=== PATIENT | female | born 2000 | race Two or more races ===

== ENCOUNTER 2018-03-08 19:19 | Emergency (ER) | payer OTHER ==
[2018-03-08] MEDS ORDERED: Cephalexin CAP* 500 MG PO ONE (20:01)
[2018-03-08] MEDS ORDERED: oxyCODONE/Acetamin 5/325 MG* TAB PO ONE (20:01)
--- NOTE | 2018-03-08 20:08 | ED ---
Skin Complaint - HPI Summary HPI Summary: This patient is a 17 year old female presenting to [facility] accompanied by mother with a chief complaint of right axillary pain since 1 week ago. Patient states that she has little lumps under her skin that make it difficult to move her arm. She states that she usually sees a customer care team coach for these issues and went to see one yesterday, where she received cortisone shots. The shots eased the pain, but patient states that she feels as if the issue is spreading and presents to the ED. The pain is described as a numbness that zaman. The pain is rated 8/10 in severity. Symptoms aggravated by nothing. Patient additionally reports fever, chills. - History of Current Complaint Chief Complaint: EDGeneral Time Seen by Provider: 03/08/18 19:54 Stated Complaint: GENERAL PAIN Hx Obtained From: Patient Onset/Duration: Started Weeks Ago, Still Present Timing: Constant Current Severity: Moderate Pain Intensity: 7 Pain Scale Used: 0-10 Numeric Skin Location: Other: - right axillary Character: Swelling, Redness Aggravating Symptom(s): Nothing Alleviating Symptom(s): Other: - Cortisone shot Associated Signs & Symptoms: Fever, Chills - Allergy/Home Medications Allergies/Adverse Reactions: Allergies Allergy/AdvReac Type Severity Reaction Status Date / Time No Known Allergies Allergy Verified 03/10/18 07:57 Home Medications: Home Medications DOXYcycline CAP(*) [DOXYcycline 100MG CAP(*)] 100 mg PO BID 03/08/18 [History Confirmed 03/08/18] PMH/Surg Hx/FS Hx/Imm Hx Previously Healthy: Yes Opthamlomology History: Denies: Hx Legally Blind EENT History: Denies: Hx Deafness Infectious Disease History: No Infectious Disease History: Denies: Traveled Outside the [place] in Last 30 Days - Family History Known Family History: Negative: Hypertension - Social History Occupation: Student Alcohol Use: None Hx Substance Use: No Substance Use Type: Reports: None Hx Tobacco Use: No Smoking Status (MU): Never Smoked Tobacco Review of Systems Positive: Fever, Chills Positive: Other - subcutaneous bumps and swelling All Other Systems Reviewed And Are Negative: Yes Physical Exam - Summary Physical Exam Summary: Appearance: Well-appearing, Well-nourished, lying in bed comfortable Skin: Warm, dry, Tenderness and swelling in right axillary without induration or visible cellulitis Eyes: sclera anicteric, no conjunctival pallor ENT: mucous membranes moist Neck: deferred Respiratory: No signs of respiratory distress Cardiovascular: Appears well perfused, pulses are nml Abdomen: deferred Musculoskeletal: Moving all 4 extremities without obvious discomfort Neurological: Awake and alert, mentation is normal, speech is fluent and appropriate Psychiatric: affect is normal, does not appear anxious or depressed Triage Information Reviewed: Yes Vital Signs On Initial Exam: Initial Vitals Temp Pulse Resp BP Pulse Ox 100.3 F 116 16 125/89 97 03/08/18 19:20 03/08/18 19:20 03/08/18 19:20 03/08/18 19:20 03/08/18 19:20 Vital Signs Reviewed: Yes Procedures - Incision and Drainage Right Axilla Site: Incision and Drainage in Right axilla Anesthesia: Local, Lidocaine Instrument(s): Scalpel Packing: Other - No packing Diagnostics - Vital Signs Vital Signs Temp Pulse Resp BP Pulse Ox 03/08/18 19:20 100.3 F 116 16 125/89 97 - Laboratory Lab Statement: Any lab studies that have been ordered have been reviewed, and results considered in the medical decision making process. - Additional Comments Diagnostic Additional Comments: Soft Tissue US reveals, per radiologist, IMPRESSION: Small fluid collection in the right axilla. ED physician has reviewed this radiology report. Course/Dx - Course Assessment/Plan: This patient is a 17 year old female presenting to [facility] accompanied by mother with a chief complaint of right axillary pain since 1 week ago. Patient states that she has little lumps under her skin that make it difficult to move her arm. Soft Tissue US reveals, per radiologist, IMPRESSION: Small fluid collection in the right axilla. ED physician has reviewed this radiology report. In the ED course the patient was given Bupivacaine, Keflex, Oxycodone. Patient will be discharged with a dx of abscess and a prescription for Bactrim, Duricel, Oxycodone. Patient is advised to follow up with PCP in 3 days. The patient is agreeable with this plan. - Diagnoses Provider Diagnoses: Abscess Discharge - Sign-Out/Discharge Documenting (check all that apply): Patient Departure Patient Received Moderate/Deep Sedation with Procedure: No - Discharge Plan Condition: Critical Disposition: HOME Prescriptions: Cefadroxil CAP* [Duricef CAP*] 500 mg PO BID #14 cap oxyCODONE/Acetamin 5/325 MG* [Percocet 5/325 TAB*] 1 tab PO Q4H PRN #10 tab MDD 4 tabs PRN Reason: Pain Sulfamethox/Trimethoprim DS* [Bactrim DS 800/160 TAB*] 1 tab PO BID #14 tab Patient Education Materials: Abscess (ED) Referrals: Juaquin Dean MD [Medical Doctor] - Additional Instructions: I am starting you on 2 antibiotics for over the weekend. On Sunday, contact your customer care team coach. You can tell them we did an US and found a small fluid collection. I attempted to incise and drain this but did not get any pus back and I am reluctant to do a deeper or larger procedure at this time. Your customer care team coach may want to repeat the US and perhaps do an incision and drainage themself. Alternatively our local general surgeons can help you if you are unable to connect to the customer care team coach. - Billing Disposition and Condition Condition: CRITICAL Disposition: Home - Attestation Statements Document Initiated by Anne: Yes Documenting Scribe: Kenyatta Hanna Provider For Whom Anne is Documenting (Include Credential): Cory Young MD Scribe Attestation: I, Kenyatta Hanna, scribed for Cory Young MD on 03/11/18 at 1325. Scribe Documentation Reviewed: Yes Provider Attestation: The documentation as recorded by the Kenyatta cortez accurately reflects the service I personally performed and the decisions made by me, Cory Young MD Status of Scribe Document: Viewed
[2018-03-08] MEDS ORDERED: Bupivacaine 0.5% W/EPI SDV* 30 ML VIAL INJ ONE (21:18)
[2018-03-08] MEDS ORDERED: Lidocaine 2% EPI 1:200000 MPF*10-20 ML VIAL ONE (21:23)
[2018-03-08] MEDS ORDERED: Sulfamethox/Trimethoprim DS 800/160* TAB PO ONE (21:37)
[2018-03-08 21:40] VITALS: BP 126/72
[2018-03-08] MEDS ORDERED: Lidocaine 2% EPI 1:200000 MPF*10-20 ML VIAL INJ ONE (21:41)
== END 2018-03-08 21:58 | disposition home or self-care (01) ==
LOC: ED 19:19
DX: L02.411 Cutaneous abscess of right axilla (principal)
CPT/HCPCS: 10060; 99282; A9270-GY

== ENCOUNTER 2018-03-17 10:43 | Inpatient (IN) | payer OTHER ==
--- NOTE | 2018-03-17 11:02 | ED ---
HPI Febrile Illness - HPI Summary HPI Summary: This patient is a 17 year old F presenting to [facility] accompanied by family with a chief complaint of fever that began yesterday night. The patient rates the pain 3/10 in severity. Symptoms aggravated by nothing. Symptoms alleviated by nothing. Patient reports R armpit pain and headache. Patient states she was seen by Dr. Nguyen in [place] on 03/14/17 and had an abscess drained from right axilla. - History of Current Complaint Chief Complaint: EDFever Time Seen by Provider: 03/17/18 10:52 Hx Obtained From: Patient Onset/Duration: Started Hours Ago, Atraumatic, Still Present Timing: Constant Initial Severity: Moderate Current Severity: Moderate Pain Intensity: 3 Pain Scale Used: 0-10 Numeric Aggravating Factors: Nothing Alleviating Factors: Nothing Associated Signs and Symptoms: Headache, Other: - Positive R armpit pain - Allergy/Home Medications Allergies/Adverse Reactions: Allergies Allergy/AdvReac Type Severity Reaction Status Date / Time No Known Allergies Allergy Verified 03/10/18 07:57 PMH/Surg Hx/FS Hx/Imm Hx Previously Healthy: Yes Sensory History: Denies: Hx Legally Blind Opthamlomology History: Denies: Hx Legally Blind EENT History: Denies: Hx Deafness - Surgical History Surgery Procedure, Year, and Place: Drain placement in right armpit 2019. [place] teeth removal Hx Anesthesia Reactions: No Infectious Disease History: No Infectious Disease History: Denies: Traveled Outside the [place] in Last 30 Days - Family History Known Family History: Positive: Cardiac Disease, Diabetes Negative: Hypertension - Social History Occupation: Student Lives: Dormitory/Roommates Alcohol Use: None Hx Substance Use: No Substance Use Type: Reports: None Hx Tobacco Use: No Smoking Status (MU): Never Smoked Tobacco Review of Systems Positive: Fever Positive: Other - Positive R armpit pain Positive: Headache All Other Systems Reviewed And Are Negative: Yes Physical Exam - Summary Physical Exam Summary: VITAL SIGNS: Reviewed. GENERAL: Patient is a well-developed and nourished female who is lying comfortable in the stretcher. Patient is not in any acute respiratory distress. Patient is flush. Patient is febrile. Patient is ill-appearing. HEAD AND FACE: No signs of trauma. No ecchymosis, hematomas or skull depressions. No sinus tenderness. EYES: PERRLA, EOMI x 2, No injected conjunctiva, no nystagmus. EARS: Hearing grossly intact. Ear canals and tympanic membranes are within normal limits. MOUTH: Oropharynx within normal limits. NECK: Supple, trachea is midline, no adenopathy, no JVD, no carotid bruit, no c- spine tenderness, neck with full ROM. CHEST: Symmetric, no tenderness at palpation LUNGS: Clear to auscultation bilaterally. No wheezing or crackles. CVS: Regular rate and rhythm, S1 and S2 present, no murmurs or gallops appreciated. ABDOMEN: Soft, non-tender. No signs of distention. No rebound no guarding, and no masses palpated. Bowel sounds are normal. EXTREMITIES: FROM in all major joints, no edema, no cyanosis or clubbing. NEURO: Alert and oriented x 3. No acute neurological deficits. Speech is normal and follows commands. SKIN: Dry and warm. Drain in place in the right axilla. Surrounding erythema around the incision area. Triage Information Reviewed: Yes Vital Signs On Initial Exam: Initial Vitals Temp Pulse Resp BP Pulse Ox 102.0 F 123 18 115/71 97 03/17/18 10:46 03/17/18 10:46 03/17/18 10:46 03/17/18 10:46 03/17/18 10:46 Vital Signs Reviewed: Yes Diagnostics - Vital Signs Vital Signs Temp Pulse Resp BP Pulse Ox 03/17/18 10:46 102.0 F 123 18 115/71 97 - Laboratory Result Diagrams: 03/17/18 11:10 03/17/18 11:10 Lab Statement: Any lab studies that have been ordered have been reviewed, and results considered in the medical decision making process. - Radiology Chest XR Radiology Interpretation Completed By: Radiologist Summary of Radiographic Findings: CXR reveals, per radiologist, no evidence for acute disease. ED physician has reviewed this radiology report. - CT Chest CT CT Interpretation Completed By: Radiologist Summary of CT Findings: Chest CT reveals, per radiologist, there is a relatively large bilobed air-fluid collection present in the right axilla with a drain in the inferior portion of the collection consistent with an abscess. The abscess appears significantly larger than on the prior ultrasound study. ED physician has reviewed this radiology report. Course/Dx - Course Assessment/Plan: Patient is a 17-year-old female with Hx of hidradenitis suppurativa who presents to the emergency department with a chief complaint of having fevers, chills, rigors an increase in pain on the right axilla where she had an abscess and drainage. I was placed at [facility] and to 03/14/18. Patient has been taking Bactrim however the symptoms worsen. Therefore the patient is failing to by mouth antibiotics. Today the patient is tachycardic, febrile, slightly hypotension and sepsis criteria was followed. Initially she was given IV fluids 30 cc per KG, she was started with vancomycin and cefepime after blood culture was sent. She was given Tylenol for the fever. Blood work without any significant abnormality except for thrombocytopenia, sodium of 133 and CRP of 53.9. At this point the patient is feeling better. At this time I discussed my physical exam and findings with Dr. Benitez from the hospitalist services for admission however she requests and chest CT with IV contrast and a surgical consult before she admits the patient to his services. Chest CT IMPRESSION: THERE IS A RELATIVELY LARGE BILOBED AIR-FLUID COLLECTION PRESENT IN THE RIGHT AXILLA WITH A DRAIN IN THE INFERIOR PORTION OF THE COLLECTION CONSISTENT WITH AN ABSCESS. THE ABSCESS APPEARS SIGNIFICANTLY LARGER THAN ON THE PRIOR ULTRASOUND STUDY. This point I discussed my physical exam and findings with and Dr. Reynoso and he will be consulting for the patient in the ED. After his assessment he recommends to add Flagyl and admission to the hospital services. I discuss my physical exam, findings and test results with Dr. Benitez from the hospitalist services and he agrees to admit patient to his services. Patient is hemodynamically stable alert and oriented x 3. - Febrile Illness Differential Diagnoses: Abscess, Bacteremia, Cellulitis - Diagnoses Provider Diagnoses: Sepsis, Cellulitis - Provider Notifications Discussed Care Of Patient With: Juaquin Dean Time Discussed With Above Provider: 12:40 Instructed by Provider To: Other - Consult with Dr. Dean (surgery) at 1240. He requested consult again after the CT result is back. Consult with Dr. Dean (surgery) at 1340. He agrees to see the patient in the ED. Consult with Dr. Dean (surgery) at 1500. He recommends patient be admitted for further evaluation. Consult with Dr. Benitez (hospitalist) at 1530. She agrees to admit the patient for further evaluation. - Critical Care Time Critical Care Time: 75-104 min Discharge - Sign-Out/Discharge Documenting (check all that apply): Patient Departure - Admit to [facility] Patient Received Moderate/Deep Sedation with Procedure: No - Discharge Plan Condition: Stable Disposition: ADMITTED TO [facility] - Billing Disposition and Condition Condition: STABLE Disposition: Admitted to [facility]
[2018-03-17] MEDS ORDERED: Cefepime(*) 2 GM in NS 0.9% 50 ML* 50 ML IVPB ONE (11:10)
[2018-03-17] MEDS ORDERED: NS 0.9% 1000 ML** 1,000 ML IV.FLUID IV ONE ×2 (11:10)
[2018-03-17] MEDS ORDERED: NS 0.9% 50 ML* 50 ML ONE (11:16)
--- OUTSIDE RECORDS SUMMARY | 2018-03-17 11:20 | XMS REPORT | Continuity of Care Document ---
:2000 External Reference #:[id number] Author Name Den Arzate MD,FACS Address [address] [place] [address] Care Team Providers Name Role Phone Lashaun Gale M.D. Care Team Information District Representative Unavailable Payers Type Date Identification Numbers Payment Provider Subscriber Policy Number: [id number] [facility] Mariah Bailon PayID: [id number] [address] [place] [address] Advance Directives Description No Information Available Problems Date Description Provider Status Onset: 03/12/2018 Cellulitis and abscess of upper limb Den Arzate MD, FACS Active Family History Description No Information Available Social History Type Date Description Comments Sex Unknown Marital Status Single Occupation Student Tobacco Use Start: Unknown Never Smoked Cigarettes Smoking Status Reviewed: 03/12/18 Never Smoked Cigarettes Tobacco Use Start: Unknown Patient denies history of smoking Allergies, Adverse Reactions, Alerts Description No Known Drug Allergies Medications Medication Date Status Form Strength Qnty SIG Indications Ordering Provider Bactroban 03/12/ Active Cream 2% 30gm apply once L03.111 H[place], 2018 or twice Den, daily to MDFACS the right axillary area Oxycodone-Aceta / Active Tablets 5-325mg as needed Unknown minophen 0000 for pain Cefadroxil / Active Capsules 500mg 1 by mouth Unknown 0000 prior ro procedure Bactrim DS / Active Tablets 800-160mg 1 tab by Unknown 0000 mouth twice a day Clindamycin / Hx Gel 1% apply twice Unknown Phosphate 0000 - a day 2018 Ketoconazole / Hx Cream 2% apply to Unknown 0000 - affected 03/12/ once 2019 daily, do not use for more than 2 weeks Doxycycline 00// Hx Capsules 100mg 1 cap by Unknown Monohydrate 0000 - mouth twice 03/12/ a day for 2018 10 days Immunizations Description No Information Available Vital Signs Date Vital Result Comment 03/12/2018 3:29pm Respiratory Rate 17 /min Height 62 inches 5'2" Weight 166.00 lb BMI (Body Mass Index) 30.4 kg/m2 BSA (Body Surface Area) 1.77 m2 [place] body weight in kilograms 50 kg Height Percentile 18 % Weight Percentile 90th Results Description No Information Available Procedures Description No Information Available Encounters Description No Information Available Plan of Treatment 03/12/2018 - Den Arzate MD,FACSL03.111 Cellulitis of right axillaNew Medication:Bactroban 2 % - apply once or twice daily to the right axillary areaNew Xrays:Ultrasound, Extremity Non Vascular Complete, Ordered: Comments:right axilla cellulitis. clinically she seems to be doing slightly better clinically. no definite abscess on clinical exam but the area feels tight , ultrasound 4 days ago with 1 cm fluid collection. i will send for repeat ultrasound, if fluid collection is larger then will plan for I+D in the operating room. continue antibiotics and keep the area clean and dry.
[2018-03-17] MEDS ORDERED: Cefepime 2 GM in Dextrose(*) 2 GM/50 ML BAG IV ONE (11:30)
[2018-03-17 11:36] LABS: Hematocrit 39 % (35-47); Hemoglobin 12.8 g/dl (12.0-16.0); Mean Corpuscular HGB Conc 33 g/dl (31-36); Mean Corpuscular Hemoglobin 27 pg (27-31); Mean Corpuscular Volume 80 fL (80-97); Red Blood Count 4.79 10^6/ul (4.00-5.40); Red Cell Distribution Width 14 % (10.5-15); White Blood Count 4.2 10^3/ul (3.5-10.8)
[2018-03-17 11:43] LABS: Albumin/Globulin Ratio 1.4 (1-3); BUN/Creatinine Ratio 9.5 (8-20); C Reactive Protein 53.97 mg/L (<8.01); Calcium 8.8 mg/dL (8.6-10.3); EGFR African American 147.3 (>60); EGFR Non-African American 121.7 (>60); Globulin 2.8 g/dL (2-4); Potassium 3.9 mmol/L (3.5-5.0); Total Bilirubin 0.3 mg/dL (0.2-1.0); Total Protein 6.8 g/dL (6.4-8.9)
[2018-03-17] MEDS ORDERED: Acetaminophen TAB* 325 MG PO ONE (11:44)
[2018-03-17 11:54] LABS: ABS Basophils 0 10^3/ul (0-0.2); ABS Eosinophils 0.1 10^3/ul (0-0.6); ABS Lymphocytes 0.5 10^3/ul (1.0-4.8); ABS Monocytes 0.1 10^3/ul (0-0.8); ABS Neutrophils 3.4 10^3/ul (1.5-7.7); ABS Nucleated RBC 0 10^3/ul; Eosinophil % 2.7 %; Lymphocyte % 12.5 %; Mean Platelet Volume 9.2 fL (7.4-10.4); Nucleated Red Blood Cells % 0.1; Platelet Count 56 10^3/ul (150-450)
[2018-03-17] MEDS ORDERED: Vancomycin(*) 1,000 MG VIAL IVPB ONE (12:00)
[2018-03-17] MEDS ORDERED: Vancomycin(*) 1,000 MG in NS 0.9% 250 ML* 250 ML IVPB ONE (12:00)
[2018-03-17 12:18] LABS: Erythrocyte Sed Rate 41 mm/Hr (0-14)
[2018-03-17 12:29] LABS: Activated Partial Thrombo Time 27.1 seconds (26.0-36.3); Fibrinogen 408.9 mg/dL (110.8-404.3); INR 1.17 (0.77-1.02)
[2018-03-17] MEDS ORDERED: Iohexol 300* (CONTRAST) 10 ML SDV IV ONE (12:50)
[2018-03-17] MEDS ORDERED: Ondansetron INJ* 2 MG/ML VIAL IV ONE (13:17)
[2018-03-17] MEDS ORDERED: metroNIDAZOLE IV 500 MG/100ML* 500 MG/100 ML BAG IVPB ONE (14:45)
[2018-03-17 15:15] LABS: Urine Appearance Cloudy; Urine Bilirubin Negative (Negative); Urine Blood Negative (Negative); Urine Color Straw; Urine Glucose Negative (Negative); Urine Ketones Trace (Negative); Urine Nitrite Negative (Negative); Urine Protein Negative (Negative); Urine Specific Gravity 1.018 (1.010-1.030); Urine Urobilinogen Negative (Negative)
[2018-03-17] MEDS ORDERED: Ondansetron ODT TAB* 4 MG SL PRN (17:30)
[2018-03-17] MEDS: Acetaminophen TAB* 325 MG PO PRN ×2 (17:45→21:51)
[2018-03-17] MEDS: metroNIDAZOLE IV 500 MG/100ML* 500 MG/100 ML BAG IVPB SCH (17:46)
--- NOTE | 2018-03-17 19:06 | HP ---
CC: [facility]; Dr. Dean; Dr. Arzate [place] * HISTORY AND PHYSICAL: DATE OF ADMISSION: 03/17/18 PRIMARY CARE PROVIDER: Provider with [facility]. CHIEF COMPLAINT: Fevers and right axillary hidradenitis suppurativa. HISTORY OF PRESENT ILLNESS: Mariah Bailon is a 17-year-old female with history of hidradenitis suppurativa for which she was getting steroid injections by Dr. Hair from Dermatology in the past, who developed exacerbation of the hidradenitis and she has had problems with pain and fevers intermittently for the past week. Eventually, she was referred to a general surgeon and Dr. Arzate from [place] on 03/14/18 performed an incision and drainage of the abscess with subsequent placement of a drain. The patient stated that the abscess had been draining well; nevertheless, she still complains of pain in the right axillary region and today she had a fever of 102 degrees. Yesterday, when febrile, she vomited once. Dr. Dean saw the patient in the emergency department, manipulated the drain and noted that it is draining well. The patient was advised to be kept for overnight observation due to sepsis secondary to right axillary abscess secondary to hidradenitis suppurativa. Dr. Dean spoke with Dr. Arzate that the patient's cultures grew Bacteroides fragilis that were sensitive to metronidazole and clindamycin. PAST MEDICAL HISTORY: 1. The patient had wisdom tooth removal in the past. 2. Hidradenitis suppurativa as mentioned above. MEDICATIONS: 1. Bactrim DS 1 tablet p.o. b.i.d. 2. The patient was treated with doxycycline and cefadroxil in the recent past. ALLERGIES: No known drug allergies. FAMILY HISTORY: Positive for diabetes on mother's side. 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 She denies any tobacco, alcohol, or drug use. Her mother is present in the room and she is the patient's surrogate; mother's name is Belkis Bailon. REVIEW OF SYSTEMS: Please see history of present illness. The patient stated that the pain in the right axillary region is now slightly improved after the manipulation performed by Dr. Dean in the ED. She also has problems with hidradenitis in the left axillary region that had been "okay" for the past several weeks. The patient had been febrile intermittently for the past week. All the remaining 12 systems were reviewed with the patient and were otherwise negative. PHYSICAL EXAMINATION GENERAL: The patient is a very pleasant 17-year-old female, who is in no acute distress. Alert, awake, and oriented x3. VITAL SIGNS: Blood pressure of 102/65, heart rate of 99 and regular, respiratory rate 18, oxygen saturation 99% on room air, temperature max of 102.0. HEENT: Head: Atraumatic, normocephalic. Eyes: Pupils are equal, reactive to light and accommodation. Oropharynx is clear. Mucosa moist. NECK: Supple. No JVD. No bruits bilaterally. RESPIRATORY: Clear to auscultation bilaterally. CARDIOVASCULAR: Regular rate and rhythm. No murmur. ABDOMEN: Soft, nontender. Bowel sounds are present in all 4 quadrants. EXTREMITIES: There is no edema. Pulses are +2 bilaterally. No clubbing or cyanosis. NEUROLOGIC: Speech is clear. Cranial nerves II through XII are grossly intact. Motor strength is 5/5 bilaterally. SKIN: On evaluation of the skin, in bilateral axillary region, the patient has subcutaneous loculations noted. The right axillary region is slightly edematous with no evidence of cellulitis. There is a drain in place, currently not draining. The patient has lymphadenopathy especially in the right axillary region. There are no other lesions noted anywhere else on the patient's skin. DIAGNOSTIC STUDIES/LAB DATA: Showed white blood cell count of 4.2, hemoglobin of 12.8, hematocrit of 39, and platelets of 56. INR was 1.17. Sodium was 133, potassium of 3.9, chloride 101, carbon dioxide 22, BUN 6, creatinine 0.63. Liver function tests unremarkable. Lactic acid of 0.7. C- reactive protein of 53. Urinalysis positive for trace ketones. Chest CT, impression: "There is a relatively large bilobed air-fluid collection present in the right axilla with a drain in the inferior portion of the collection consistent with an abscess. The abscess appears significantly larger than on the prior ultrasound study." ASSESSMENT AND PLAN: In regards to the patient's right axillary abscess due to hidradenitis suppurativa that is Bacteroides fragilis-positive cultures, I discussed the case with Dr. Dean. He saw the patient for consult in the emergency department. Although on the CT, the abscess appears to be larger because of postoperative course and recent drain insertion. At this point, Dr. Dean referred to Medicine to treat the patient with IV antibiotics. Due to the patient's fever and tachycardia, the patient is septic. She received intravenous boluses in the emergency department. She is going to be treated with IV metronidazole. The patient has thrombocytopenia, likely due to sepsis. That will be followed with morning CBC. For DVT prophylaxis, the patient is going to be placed on ambulation as she is low risk. The patient's code status is full and her surrogate is her mom. TIME SPENT: Approximately 66 minutes was spent on admission of this patient, more than half that time was spent [id number] with the patient during the interview and physical exam. [id number] #: [id number] [place]
--- NOTE | 2018-03-17 20:12 | CONS ---
[facility]; Dr. Den Arzate in [place], [place] * SURGICAL CONSULTATION REPORT: DATE OF CONSULT: 03/17/18 REASON FOR CONSULT: Postop fever. HISTORY OF PRESENT ILLNESS: Ms. Mariah Bailon is a 17-year-old female, [employer] student with history of hidradenitis suppurativa. She was diagnosed with a right axillary abscess and underwent incision and drainage of this abscess on , 03/14/18, at [facility] by Dr. Arzate. At that time, the patient apparently had a large 7 cm abscess with about 150 cc puss that was removed. A Malecot catheter was left as a drain and sutured to the skin. The patient had been on Bactrim for antibiotic coverage. The patient had been staying in a hotel with her mother and aunt and developed fever last night to 102. She had been only taking Tylenol for her pain and had been [facility] She presented to the emergency room on 03/17/18 because of ongoing fever. At that time, she presented, she was tachycardic to 123 and her temperature was 102.0. The patient was noted to have white blood cell count of 4.2, hematocrit of 39, her platelet count was 56,000, ESR was 41. She underwent CT chest, which showed the drain to be in place with a collection in the axilla, which was measuring 8.2 x 3.2 x 2.5 cm containing air and fluid. The patient was referred for surgical consultation based these findings. PAST MEDICAL HISTORY: The patient's past medical history is significant for hidradenitis suppurativa. PAST SURGICAL HISTORY: She has no other surgical history. MEDICATIONS: 1. Percocet. 2. Bactrim. 3. Tylenol. ALLERGIES: She has no allergies. FAMILY HISTORY: Noncontributory. SOCIAL HISTORY: She is not a smoker. No substance abuse. She is a student at [employer]. She is single. PHYSICAL EXAMINATION: She was 100.8 degrees, pulse of 106, respirations are 99 % on room air, blood pressure 115/71. She appears flushed. She is awake and alert, appropriately responded to questions. In the right axilla, there is a blood bloody drainage present on the surrounding skin. There is a 2 to 3 cm wound with a Malecot drain sutured in place. There was some expressible bloody drainage from the site. The suture was cut in order to manipulate the drain. The drain was able to be fully rotated and there is a small amount of blood fluid able to be expressed through the drain. There was no palpable mass or fluctuance. There was surrounding tenderness. DIAGNOSTIC STUDIES/LAB DATA: Laboratory Data: Reported as above. CT Imaging: Findings as above. IMPRESSION: A 17-year-old female with known history of hidradenitis suppurativa with right axially abscess status post drainage on 03/14/18. It appears to have been adequately drained. I did discuss the patient with her primary surgeon, Dr. Arzate. Per his report, her cultures have grown up bacteroides fragilis sensitive to clindamycin and metronidazole. I suspect her fever may be secondary to inadequate coverage from the Bactrim and not due to an undrained collection. PLAN/RECOMMENDATIONS: I discussed the findings with the patient, her mother, and aunt. I also discussed the findings with Dr. Wolfe in the emergency room. The patient is to be admitted to the hospital, for sepsis workup. She will be administered appropriate intravenous antibiotics. She does have a scheduled follow up with Dr. Arzate in his office on Sunday. [facility] will follow her while she is hospitalized. [id number]/[facility] #: [id number] [facility]
[2018-03-17] MEDS: Psyllium PAK PO PRN (21:58)
[2018-03-18] MEDS: metroNIDAZOLE IV 500 MG/100ML* 500 MG/100 ML BAG IVPB SCH ×3 (00:47→16:39)
[2018-03-18] MEDS: Acetaminophen TAB* 325 MG PO PRN ×2 (05:26→20:11)
[2018-03-18 07:05] LABS: Calcium 8.5 mg/dL (8.6-10.3); Potassium 3.8 mmol/L (3.5-5.0)
[2018-03-18 07:10] LABS: BUN/Creatinine Ratio 8.7 (8-20); EGFR African American 211.7 (>60)
[2018-03-18 07:34] LABS: ABS Basophils 0 10^3/ul (0-0.2); ABS Eosinophils 0.2 10^3/ul (0-0.6); ABS Lymphocytes 0.6 10^3/ul (1.0-4.8); ABS Monocytes 0.2 10^3/ul (0-0.8); ABS Neutrophils 1.5 10^3/ul (1.5-7.7); ABS Nucleated RBC 0 10^3/ul; Eosinophil % 7.4 %; Hematocrit 38 % (35-47); Hemoglobin 12.4 g/dl (12.0-16.0); Lymphocyte % 25.3 %; Mean Corpuscular HGB Conc 33 g/dl (31-36); Mean Corpuscular Hemoglobin 27 pg (27-31); Mean Corpuscular Volume 80 fL (80-97); Mean Platelet Volume 10.6 fL (7.4-10.4); Nucleated Red Blood Cells % 0.2; Platelet Count 4 10^3/ul (150-450); Red Blood Count 4.69 10^6/ul (4.00-5.40); Red Cell Distribution Width 14 % (10.5-15); White Blood Count 2.5 10^3/ul (3.5-10.8)
[2018-03-18 08:41] LABS: Hematocrit 33 % (35-47); Hemoglobin 10.9 g/dl (12.0-16.0); Mean Corpuscular HGB Conc 33 g/dl (31-36); Mean Corpuscular Hemoglobin 27 pg (27-31); Mean Corpuscular Volume 80 fL (80-97); Platelet Count 3 10^3/ul (150-450); Red Blood Count 4.09 10^6/ul (4.00-5.40); Red Cell Distribution Width 14 % (10.5-15); White Blood Count 2.3 10^3/ul (3.5-10.8)
--- NOTE | 2018-03-18 09:16 | PN ---
Subjective Date of Service: 03/18/18 Interval History: Pt feels well. Temp up to 100.4 at night. Plts 3 today, pt denies any problems with bleeding or rash Objective Active Medications: Acetaminophen (Tylenol Tab*) 650 mg PO Q4H PRN PRN Reason: FEVER/PAIN Last Admin: 03/18/18 05:26 Dose: 650 mg Metronidazole/Sodium Chloride (Flagyl 500 Mg Ivpb*) 500 mg in 100 mls @ 100 mls /hr IVPB Q8H SLIM Last Admin: 03/18/18 08:59 Dose: 100 mls/hr Ondansetron HCl (Zofran Odt Tab*) 4 mg SL Q6H PRN PRN Reason: NAUSEA/VOMITING Psyllium Hydrophilic Mucilloid (Metamucil Tony*) 1 pkt PO DAILY PRN PRN Reason: DIARRHEA Last Admin: 03/17/18 21:58 Dose: 1 pkt Vital Signs - 8 hr 03/18/18 03/18/18 03/18/18 03:12 05:29 07:19 Temperature 98.4 F 100.4 F 98.9 F Pulse Rate 79 86 Respiratory 16 16 Rate Blood Pressure 103/60 104/50 (mmHg) O2 Sat by Pulse 99 99 Oximetry 03/18/18 08:00 Temperature Pulse Rate Respiratory 18 Rate Blood Pressure (mmHg) O2 Sat by Pulse 99 Oximetry Oxygen Devices in Use Now: None Appearance: 17 yo F in nAD, aAOx3 Eyes: No Scleral Icterus, PERRLA Ears/Nose/Mouth/Throat: NL Teeth, Lips, Gums, Mucous Membranes Moist Neck: NL Appearance and Movements; NL JVP, Trachea Midline Respiratory: Symmetrical Chest Expansion and Respiratory Effort, Clear to Auscultation, - - R axilla -drain inplace with serosanguinesu and some purulent drainage, ski with no cellulitis, petechiae noted when tape is take off with dressing and R antecub region where tape was applied before Cardiovascular: NL Sounds; No Murmurs; No JVD, RRR Abdominal: NL Sounds; No Tenderness; No Distention Lymphatic: No Cervical Adenopathy, - - + axillary adenopathy b/l Skin: No Nodules or Sclerosis, - - scattered petechiae as above Neurological: Alert and Oriented x 3, NL Muscle Strength and Tone Result Diagrams: 03/18/18 08:00 03/18/18 06:38 Assess/Plan/Problems-Billing Assessment: 17 yo F with h/o hydroadenitis suppurative got infection in R axilla that was I&D'ed in [place] on 03/14/18, now with fevers and thombocytopenia - Patient Problems (1) Sepsis Comment: duet to R axillary abscess, cx growing B. fragilis senistive to Flagyl and clinda Blood cx and wound cx pending cont Flagyl, IVF (2) Thrombocytopenia Comment: Plt down to 3 today ? ITP Likely Bactrim and /or sepsis mediated Dr. Nicholas consulted Plt transfusion today (3) DVT prophylaxis Comment: low risk , ambulation Status and Disposition: inpatient
[2018-03-18 12:03] LABS: Uric Acid 2.8 mg/dL (2.3-6.6)
[2018-03-18 14:47] LABS: Mean Platelet Volume 8.6 fL (7.4-10.4); Platelet Count 9 10^3/ul (150-450)
[2018-03-18] MEDS: Psyllium PAK PO PRN (15:21)
[2018-03-18] MEDS ORDERED: IMMUNE GLOBULN IV ONE ×5 (15:33→16:30)
--- NOTE | 2018-03-18 16:09 | CONS ---
AMENDED REPORT NOW INCLUDES DATE OF CONSULT CONSULTATION REPORT: DATE OF CONSULT: 03/18/18 CHIEF COMPLAINT: Neutropenia and thrombocytopenia. HISTORY OF PRESENT ILLNESS: A 17-year-old female with a longstanding history of hidradenitis suppurativa. Now, symptoms had flared several weeks ago and she had several steroid injections by Dr. Hair. Unfortunately, the steroid injections did not improve her symptoms. She progressed with increasing redness and then fevers over 1 week. She was seen in the emergency room at [facility] and was given 2 antibiotics, but I do not see that in the system, so I am not sure what she received. This is followed by continued no improvement in her symptoms, she had been taking doxycycline without help. She was referred to Dr. Arzate at [place], whom she saw on 03/14. At that time, she had a 7 cm abscess and he had drained 150 cc of puss and a drain was placed. She was placed on Bactrim antibiotic coverage on . On the evening of 03/16/18, she developed a fever of 102 and presented to the emergency room on 03/17/18. Admitted for continue fevers. On admission, she was placed on cefepime and metronidazole; and on 03/18/18, changed to metronidazole alone. This is based on outside cultures showing B fragilis sensitive to Flagyl and clinda. Her platelet count was 220 on 03/10/18, 56 on 03/17/18, then 4 today. Her hemoglobin is 10.9 down from 12.4 with MCV of 80 and a white count is 2.3 down from 4.2 on 03/17/18 and 9.9 on 03/10/18. ESR was 41. PAST MEDICAL HISTORY: Negative except for above. PAST SURGICAL HISTORY: [place] teeth out. FAMILY HISTORY: Only significant for diabetes. SOCIAL HISTORY: She is a [employer] student. She drinks occasionally. REVIEW OF SYSTEMS: Chronic constipation, which continues in the hospital. Arm is feeling better. She denies any focal joint aches or pains, shortness of breath, chest pain or palpitations. She has not had any skin rashes. PHYSICAL EXAM: Temperature 98.9 today, BP 104/50, pulse 86, respirations 18, O2 sat 99%. HEENT: Mucosa moist, no lesions. No cervical or supraclavicular lymphadenopathy. No bleeding. She has no right-sided axillary lymphadenopathy. Lungs: Clear to auscultation. Heart: Regular rhythm. S1, S2. Abdomen: Obese, nontender, nondistended. No palpable spleen. Extremities : Slight petechiae in the ankles, good pulses x4. DIAGNOSTIC STUDIES/LAB DATA: Review of the blood film shows almost complete absence of platelets. The white cells have multiple bands, very few mature polys, no blasts, occasional promyelocyte. Red blood cell morphology looks fairy normal. Cultures are from the outside hospital. Chemistry show sodium of 135, BUN 4, creatinine 0.46, calcium 8.5, potassium 3.8. ASSESSMENT AND PLAN: A 17-year-old female with marked pancytopenia in the setting of infection and recent treatment with Bactrim as well as other antibiotics. The blood film shows absence of mature granulocytes, but no blasts and absence of platelets. Differential diagnosis is pancytopenia secondary to Bactrim, component of sepsis and consumption. She could have overlying idiopathic thrombocytopenic purpura. I do not see evidence of leukemia, but neutrophils are immature. She could have developed a marrow process that triggered the infection. 1. We will send B12, SPEP, uric acid, LDH. 2. Transfuse 1 unit of platelets and we will see if this responds. If she does not respond, then immune dysfunction is likely. 3. Agree with continuing Flagyl and holding all other antibiotics. We will continue to follow closely. ADDENDUM: Tx 1 U plts w/o bump in count, trial IVIG [id number]/[facility] #: [id number] [facility]
[2018-03-18] MEDS ORDERED: [UNRECOGNIZED DRUG - OTHER] IV ONE ×4 (16:30)
[2018-03-19] MEDS ORDERED: NS 0.9% 500 ML* 500 ML IV ONE (00:04)
[2018-03-19] MEDS ORDERED: Polyethylene Glycol 3350* 17 GM PACKET PO PRN (00:33)
[2018-03-19] MEDS: metroNIDAZOLE IV 500 MG/100ML* 500 MG/100 ML BAG IVPB SCH ×3 (01:40→19:44)
[2018-03-19] MEDS: Senna TAB PO PRN (02:16)
[2018-03-19] MEDS: Acetaminophen TAB* 325 MG PO PRN ×4 (07:28→23:18)
[2018-03-19 08:51] LABS: ABS Neutrophils 0.6 10^3/ul (1.5-7.7); Hematocrit 30 % (35-47); Hemoglobin 10.1 g/dl (12.0-16.0); Mean Corpuscular HGB Conc 33 g/dl (31-36); Mean Corpuscular Hemoglobin 27 pg (27-31); Mean Corpuscular Volume 80 fL (80-97); Platelet Count 5 10^3/ul (150-450); Red Cell Distribution Width 14 % (10.5-15); White Blood Count 2.3 10^3/ul (3.5-10.8)
[2018-03-19 09:02] LABS: ALT 29 U/L (7-52); AST 36 U/L (13-39); Albumin/Globulin Ratio 0.7 (1-3); Alkaline Phosphatase 51 U/L (34-104); Globulin 4.6 g/dL (2-4); Total Protein 7.6 g/dL (6.4-8.9)
[2018-03-19] MEDS ORDERED: IMMUNE GLOBULN IV ONE ×5 (09:07→10:00)
[2018-03-19 09:25] LABS: ABS Basophils 0 10^3/ul (0-0.2); ABS Eosinophils 0.1 10^3/ul (0-0.6); ABS Lymphocytes 1.2 10^3/ul (1.0-4.8); ABS Monocytes 0.3 10^3/ul (0-0.8); ABS Nucleated RBC 0 10^3/ul; Eosinophil % 5.9 %; Lymphocyte % 53.4 %; Nucleated Red Blood Cells % 0.2
[2018-03-19] MEDS: Docusate CAP* 100 MG PO SCH ×2 (09:40→23:22)
[2018-03-19] MEDS ORDERED: [UNRECOGNIZED DRUG - OTHER] IV ONE ×4 (10:00)
--- NOTE | 2018-03-19 10:27 | PN ---
Subjective Date of Service: 03/19/18 Interval History: Pt noted rash on b/l thighs and posterior UE's Denies bleeding gums, wound, or BRBPR, or melena Objective Active Medications: Acetaminophen (Tylenol Tab*) 650 mg PO Q4H PRN PRN Reason: FEVER/PAIN Last Admin: 03/19/18 07:28 Dose: 650 mg Docusate Sodium (Colace Cap*) 100 mg PO BID SLIM Last Admin: 03/19/18 09:40 Dose: 100 mg Metronidazole/Sodium Chloride (Flagyl 500 Mg Ivpb*) 500 mg in 100 mls @ 100 mls /hr IVPB Q8H SLIM Last Admin: 03/19/18 09:39 Dose: 100 mls/hr Magnesium Hydroxide (Milk Of Magnesia Liq*) 30 ml PO BID PRN PRN Reason: CONSTIPATION Ondansetron HCl (Zofran Odt Tab*) 4 mg SL Q6H PRN PRN Reason: NAUSEA/VOMITING Polyethylene Glycol/Electrolytes (Miralax*) 17 gm PO DAILY PRN PRN Reason: CONSTIPATION Psyllium Hydrophilic Mucilloid (Metamucil Tony*) 1 pkt PO DAILY PRN PRN Reason: DIARRHEA Last Admin: 03/18/18 15:21 Dose: 1 pkt Senna (Senokot Tab*) 1 tab PO BEDTIME PRN PRN Reason: CONSTIPATION Last Admin: 03/19/18 02:16 Dose: 1 tab Vital Signs - 8 hr 03/19/18 03/19/18 03/19/18 04:20 07:30 07:34 Temperature 98.2 F 98.5 F Pulse Rate 79 81 Respiratory 16 15 15 Rate Blood Pressure 94/60 109/73 (mmHg) O2 Sat by Pulse 99 99 Oximetry Oxygen Devices in Use Now: None Appearance: 17 yo f in nAD, AAOx3 Eyes: No Scleral Icterus, PERRLA Ears/Nose/Mouth/Throat: NL Teeth, Lips, Gums, Mucous Membranes Moist Neck: NL Appearance and Movements; NL JVP, Trachea Midline Respiratory: Symmetrical Chest Expansion and Respiratory Effort, Clear to Auscultation, - - R axilla with drain in place, draining serosanguineus fluid, no cellulitis noted Cardiovascular: NL Sounds; No Murmurs; No JVD, RRR Abdominal: NL Sounds; No Tenderness; No Distention Lymphatic: - - +axillary adenopathy b/l Extremities: No Edema, No Clubbing, Cyanosis Skin: No Nodules or Sclerosis, - - scattered patechiae on b/l upper thighs and posterior aspect of proximal b/l UE Neurological: Alert and Oriented x 3, NL Muscle Strength and Tone Result Diagrams: 03/19/18 08:37 03/18/18 06:38 Microbiology and Other Data: Microbiology 03/17/18 10:42 Aerobic Blood Culture - Preliminary Blood Venous No Growth Day 1 Anaerobic Blood Culture - Preliminary No Growth Day 1 03/18/18 09:10 Gram Stain - Final Axilla Right 03/17/18 11:10 Aerobic Blood Culture - Preliminary Blood Venous No Growth Day 1 Anaerobic Blood Culture - Preliminary No Growth Day 1 Assess/Plan/Problems-Billing Assessment: 17 yo F with h/o hydroadenitis suppurative got infection in R axilla that was I&D'ed in [place] on 03/14/18, now with fevers and thombocytopenia - Patient Problems (1) Sepsis Comment: duet to R axillary abscess, cx growing B. fragilis senistive to Flagyl and clinda Blood cx and wound cx pending cont Flagyl (2) Thrombocytopenia Comment: Plt down to 5 today despite Plt transfusion yesterday and IVIg tx. ? ITP. D/w Dr. Vernon. Ot may need BM bx. Likely Bactrim and /or sepsis mediated Cont IV Ig today (3) Leukopenia Comment: together with thrombocytopenia-likley due to Bactrim Neutropenic precautions in place (4) DVT prophylaxis Comment: low risk , ambulation Status and Disposition: inpatient
[2018-03-19] MEDS: Ondansetron INJ* 2 MG/ML VIAL IV PRN ×3 (10:39→19:45)
[2018-03-19] MEDS ORDERED: Morphine VIAL* 4 MG/ML VIAL (1 ml vial) ONE (13:01)
[2018-03-19] MEDS ORDERED: Morphine VIAL* 4 MG/ML VIAL (1 ml vial) IV ONE (14:00)
[2018-03-19] MEDS ORDERED: Scopolamine 1.5 mg* PATCH TRANSDERM SCH (18:15)
[2018-03-19] MEDS ORDERED: Scopolamine 1.5 mg* PATCH ONE (18:48)
[2018-03-19] MEDS ORDERED: NS 0.9% 1000 ML** 1,000 ML IV SCH (20:15)
[2018-03-19] MEDS ORDERED: PROCHLORPERAZINE INJ 5 MG/ML 2 ML VIAL IV PRN (20:28)
[2018-03-20] MEDS: metroNIDAZOLE IV 500 MG/100ML* 500 MG/100 ML BAG IVPB SCH ×3 (00:08→17:11)
--- NOTE | 2018-03-20 08:53 | PN ---
Progress Note - Progress Note Date of Service: 03/19/18 SOAP: Subjective: Late entry. Patient was seen 03/19 at mid-morning. Offered no complaints. Pain in R axilla controlled. Objective: Afebrile VSS R axilla with drain in place. No erythema. Serosanguinous drainage expressed. Axillary wound cx negative to date Assessment: R axillary abscess s/p I&D. Hydradenitis suppurativa. Pancytopenia. Plan: Continue drain, local wound care and antibiotics. No surgical intervention planned.
[2018-03-20] MEDS: Magnesium Hydroxide LIQ* 30 ML UDC PO PRN (10:19)
[2018-03-20] MEDS: Docusate CAP* 100 MG PO SCH ×2 (10:19→21:20)
[2018-03-20 10:24] LABS: ABS Basophils 0 10^3/ul (0-0.2); ABS Eosinophils 0 10^3/ul (0-0.6); ABS Lymphocytes 1.4 10^3/ul (1.0-4.8); ABS Monocytes 0.3 10^3/ul (0-0.8); ABS Neutrophils 1.6 10^3/ul (1.5-7.7); ABS Nucleated RBC 0 10^3/ul; Eosinophil % 0.7 %; Hematocrit 29 % (35-47); Hemoglobin 9.9 g/dl (12.0-16.0); Lymphocyte % 42.1 %; Mean Corpuscular HGB Conc 34 g/dl (31-36); Mean Corpuscular Hemoglobin 27 pg (27-31); Mean Corpuscular Volume 79 fL (80-97); Mean Platelet Volume 9.4 fL (7.4-10.4); Nucleated Red Blood Cells % 0.1; Platelet Count 23 10^3/ul (150-450); Red Blood Count 3.71 10^6/ul (4.00-5.40); Red Cell Distribution Width 13 % (10.5-15); White Blood Count 3.4 10^3/ul (3.5-10.8)
[2018-03-20 10:36] LABS: Albumin 2.9 g/dL (3.2-5.2); Albumin/Globulin Ratio 0.5 (1-3); BUN/Creatinine Ratio 15.2 (8-20); C Reactive Protein 18.5 mg/L (<8.01); Calcium 8.3 mg/dL (8.6-10.3); EGFR African American 211.7 (>60); Globulin 5.9 g/dL (2-4); Potassium 3.8 mmol/L (3.5-5.0); Total Bilirubin 0.3 mg/dL (0.2-1.0); Total Protein 8.8 g/dL (6.4-8.9)
--- NOTE | 2018-03-20 11:11 | PROCNOTE ---
Hematology/Oncology Procedure Hematology/Oncology Procedure Note: Bone marrow biospy/aspiration: DOS: 03/19/18 Written, informed consent obtained. Time out completed. Patient placed in R lateral decubitus position. L PSIS identified and marked. Local anesthesia with 2% lidocaine. Bone marrow aspiration and core biopsy successfully completed. Patient received 4mg IV morphine during the procedure for pain relief. Pressure applied to achieve hemostasis. Patient tolerated procedure well.
--- NOTE | 2018-03-20 13:26 | PN ---
Progress Note - Progress Note Date of Service: 03/20/18 SOAP: Subjective: No pain at this time. No fevers/chills. Feels better than yesterday. Not much appetite. Objective: Vital Signs Temp 98.5 F 03/20/18 11:11 Pulse 82 03/20/18 11:11 Resp 14 03/20/18 11:11 BP 121/75 03/20/18 11:11 Pulse Ox 97 03/20/18 11:11 Gen: NAD; sitting up in bed R axilla: drain dressings are c/d/i; mildly tender along course of the drain. Intake & Output 03/19/18 03/20/18 03/20/18 18:59 06:59 18:59 Intake Total 520 1000 1148 Output Total 750 1350 Balance -230 -350 1148 Intake: IV Fluids 938 NS (0.9%) 938 IVPB 210 flagyl 210 Oral 520 1000 Output: Urine 500 1350 Emesis 250 Laboratory Results - last 24 hr 03/19/18 03/20/18 03/20/18 08:37 10:10 10:10 WBC 3.4 L RBC 3.71 L Hgb 9.9 L Hct 29 L MCV 79 L MCH 27 MCHC 34 RDW 13 Plt Count 23 L D MPV 9.4 Neut % (Auto) 46.1 Lymph % (Auto) 42.1 [place] % (Auto) 10.2 Eos % (Auto) 0.7 Baso % (Auto) 0.9 Absolute Neuts (auto) 1.6 Absolute Lymphs (auto) 1.4 Absolute Monos (auto) 0.3 Absolute Eos (auto) 0 Absolute Basos (auto) 0 Absolute Nucleated RBC 0 Nucleated RBC % 0.1 Hem Pathologist Commnt Sodium 132 L Potassium 3.8 Chloride 103 Carbon Dioxide 23 Anion Gap 6 BUN 7 Creatinine 0.46 L Est GFR ( Amer) 211.7 Est GFR (Non-Af Amer) 175.0 BUN/Creatinine Ratio 15.2 Glucose 81 Calcium 8.3 L Total Bilirubin 0.30 AST 256 H ALT 175 H Alkaline Phosphatase 52 C-Reactive Protein 18.50 H Total Protein 8.8 Albumin 2.9 L Globulin 5.9 H Albumin/Globulin Ratio 0.5 L Microbiology 03/17/18 10:42 Aerobic Blood Culture - Preliminary Blood Venous No Growth Day 3 Anaerobic Blood Culture - Preliminary No Growth Day 3 03/17/18 11:10 Aerobic Blood Culture - Preliminary Blood Venous No Growth Day 3 Anaerobic Blood Culture - Preliminary No Growth Day 3 03/18/18 09:10 Gram Stain - Final Axilla Right Wound Culture - Preliminary No Growth Day 2 Assessment: R axillary abscess s/p I&D at [place] on 03/14. Hydradenitis suppurativa. Pancytopenia. Overall improved. Plan: Will await further improvement in CBC before drain removal. Cont abx.
--- NOTE | 2018-03-20 14:57 | PN ---
Subjective Date of Service: 03/20/18 Interval History: Pt had headache and vomiting last night. CT brain WNL. Feeling better, ate breakfast today. Objective Active Medications: Acetaminophen (Tylenol Tab*) 650 mg PO Q4H PRN PRN Reason: FEVER/PAIN Last Admin: 03/19/18 23:18 Dose: 650 mg Docusate Sodium (Colace Cap*) 100 mg PO BID [facility] Last Admin: 03/20/18 10:19 Dose: 100 mg Metronidazole/Sodium Chloride (Flagyl 500 Mg Ivpb*) 500 mg in 100 mls @ 100 mls /hr IVPB Q8H [facility] Last Admin: 03/20/18 10:18 Dose: 100 mls/hr Magnesium Hydroxide (Milk Of Magnesia Liq*) 30 ml PO BID PRN PRN Reason: CONSTIPATION Last Admin: 03/20/18 10:19 Dose: 30 ml Ondansetron HCl (Zofran Odt Tab*) 4 mg SL Q6H PRN PRN Reason: NAUSEA/VOMITING Ondansetron HCl (Zofran Inj*) 4 mg IV Q4H PRN PRN Reason: VOMITING Last Admin: 03/19/18 19:45 Dose: 4 mg Pharmacy Profile Note (Scopolamine Patch Remove*) 1 note PATCH OFF Q72H [facility] Polyethylene Glycol/Electrolytes (Miralax*) 17 gm PO DAILY PRN PRN Reason: CONSTIPATION Prochlorperazine Edisylate (Compazine Inj*) 5 mg IV Q6H PRN PRN Reason: NAUSEA/VOMITING Last Admin: 03/19/18 21:30 Dose: 5 mg Psyllium Hydrophilic Mucilloid (Metamucil Tony*) 1 pkt PO DAILY PRN PRN Reason: DIARRHEA Last Admin: 03/18/18 15:21 Dose: 1 pkt Scopolamine (Transderm-Scop 1.5 Mg Patch*) 1 patch TRANSDERM Q72H [facility] Last Admin: 03/19/18 18:57 Dose: Not Given Senna (Senokot Tab*) 1 tab PO BEDTIME PRN PRN Reason: CONSTIPATION Last Admin: 03/19/18 02:16 Dose: 1 tab Vital Signs - 8 hr 03/20/18 03/20/18 03/20/18 07:55 08:00 11:11 Temperature 98.7 F 98.5 F Pulse Rate 76 82 Respiratory 16 16 14 Rate Blood Pressure 116/68 121/75 (mmHg) O2 Sat by Pulse 98 98 97 Oximetry Oxygen Devices in Use Now: None Appearance: 17 yo F in nAD, AAOx3 Eyes: No Scleral Icterus, PERRLA Ears/Nose/Mouth/Throat: NL Teeth, Lips, Gums, Mucous Membranes Moist Neck: NL Appearance and Movements; NL JVP, Trachea Midline Respiratory: Symmetrical Chest Expansion and Respiratory Effort, Clear to Auscultation, - - R axillary abscesswith drain in place-scant serosanguineus drainage noted Cardiovascular: NL Sounds; No Murmurs; No JVD, RRR Abdominal: NL Sounds; No Tenderness; No Distention, No Hepatosplenomegaly Skin: No Nodules or Sclerosis, - - no cellulitis, scattered petechiae on B/l UE' s and LE's Neurological: Alert and Oriented x 3, NL Muscle Strength and Tone Result Diagrams: 03/20/18 10:10 03/20/18 10:10 Microbiology and Other Data: Microbiology 03/17/18 10:42 Aerobic Blood Culture - Preliminary Blood Venous No Growth Day 1 Anaerobic Blood Culture - Preliminary No Growth Day 1 03/18/18 09:10 Gram Stain - Final Axilla Right 03/17/18 11:10 Aerobic Blood Culture - Preliminary Blood Venous No Growth Day 1 Anaerobic Blood Culture - Preliminary No Growth Day 1 Assess/Plan/Problems-Billing Assessment: 17 yo F with h/o hydroadenitis suppurative got infection in R axilla that was I&D'ed in [place] on 03/14/18, now with fevers and thombocytopenia - Patient Problems (1) Sepsis Comment: due to R axillary abscess, cx growing B. fragilis sensitive to Flagyl and clinda Blood cx and wound cx neg so far cont Flagyl (2) Thrombocytopenia Comment: Plt improved to 23 today BM bx results pending Likely Bactrim and /or sepsis mediated S/p 2 days of IV Ig 03/18- 03/19/18 (3) Leukopenia Comment: together with thrombocytopenia-likely due to Bactrim resolving (4) DVT prophylaxis Comment: low risk , ambulation Status and Disposition: inpatient
[2018-03-20 16:28] LABS: Albumin 2.6 g/dL (3.4-4.7); Albumin/Globulin Ratio 0.96; Total Protein(PEP) 5.3 g/dL (6.3 - 7.9)
[2018-03-20] MEDS: Senna TAB PO PRN (21:20)
[2018-03-21] MEDS: metroNIDAZOLE IV 500 MG/100ML* 500 MG/100 ML BAG IVPB SCH ×3 (01:43→17:16)
[2018-03-21 08:04] LABS: ABS Basophils 0 10^3/ul (0-0.2); ABS Eosinophils 0.1 10^3/ul (0-0.6); ABS Lymphocytes 1.8 10^3/ul (1.0-4.8); ABS Monocytes 0.3 10^3/ul (0-0.8); ABS Neutrophils 2.3 10^3/ul (1.5-7.7); ABS Nucleated RBC 0 10^3/ul; Eosinophil % 1.3 %; Hematocrit 31 % (35-47); Hemoglobin 10.6 g/dl (12.0-16.0); Lymphocyte % 39.4 %; Mean Corpuscular HGB Conc 34 g/dl (31-36); Mean Corpuscular Hemoglobin 27 pg (27-31); Mean Corpuscular Volume 80 fL (80-97); Mean Platelet Volume 9.9 fL (7.4-10.4); Nucleated Red Blood Cells % 0.1; Platelet Count 42 10^3/ul (150-450); Red Blood Count 3.93 10^6/ul (4.00-5.40); Red Cell Distribution Width 14 % (10.5-15); White Blood Count 4.5 10^3/ul (3.5-10.8)
--- NOTE | 2018-03-21 08:42 | PN ---
Subjective Date of Service: 03/21/18 Interval History: Pt is feeling ok. She admits to mild discomfort in the R axilla, she states nursing just changed the dressing and there was some drainage on it. She denies any bleeding. No abdominal discomfort despite not having a BM for the last 6-7 days. Objective Active Medications: Acetaminophen (Tylenol Tab*) 650 mg PO Q4H PRN PRN Reason: FEVER/PAIN Last Admin: 03/19/18 23:18 Dose: 650 mg Docusate Sodium (Colace Cap*) 100 mg PO BID [facility] Last Admin: 03/20/18 21:20 Dose: 100 mg Metronidazole/Sodium Chloride (Flagyl 500 Mg Ivpb*) 500 mg in 100 mls @ 100 mls /hr IVPB Q8H [facility] Last Admin: 03/21/18 01:43 Dose: 100 mls/hr Magnesium Hydroxide (Milk Of Magnesia Liq*) 30 ml PO BID PRN PRN Reason: CONSTIPATION Last Admin: 03/20/18 10:19 Dose: 30 ml Ondansetron HCl (Zofran Odt Tab*) 4 mg SL Q6H PRN PRN Reason: NAUSEA/VOMITING Ondansetron HCl (Zofran Inj*) 4 mg IV Q4H PRN PRN Reason: VOMITING Last Admin: 03/19/18 19:45 Dose: 4 mg Pharmacy Profile Note (Scopolamine Patch Remove*) 1 note PATCH OFF Q72H [facility] Polyethylene Glycol/Electrolytes (Miralax*) 17 gm PO DAILY PRN PRN Reason: CONSTIPATION Prochlorperazine Edisylate (Compazine Inj*) 5 mg IV Q6H PRN PRN Reason: NAUSEA/VOMITING Last Admin: 03/19/18 21:30 Dose: 5 mg Psyllium Hydrophilic Mucilloid (Metamucil Tony*) 1 pkt PO DAILY PRN PRN Reason: DIARRHEA Last Admin: 03/18/18 15:21 Dose: 1 pkt Scopolamine (Transderm-Scop 1.5 Mg Patch*) 1 patch TRANSDERM Q72H [facility] Last Admin: 03/19/18 18:57 Dose: Not Given Senna (Senokot Tab*) 1 tab PO BEDTIME PRN PRN Reason: CONSTIPATION Last Admin: 03/20/18 21:20 Dose: 1 tab Vital Signs - 8 hr 03/21/18 03:26 Temperature 98.7 F Pulse Rate 76 Respiratory 16 Rate Blood Pressure 116/53 (mmHg) O2 Sat by Pulse 100 Oximetry Oxygen Devices in Use Now: None Appearance: Young female lying in bed, NAD Eyes: No Scleral Icterus Ears/Nose/Mouth/Throat: Mucous Membranes Moist Respiratory: Symmetrical Chest Expansion and Respiratory Effort, Clear to Auscultation Cardiovascular: NL Sounds; No Murmurs; No JVD, RRR, No Edema Abdominal: NL Sounds; No Tenderness; No Distention Extremities: No Clubbing, Cyanosis Skin: - - R axilla not inspected by myself, will discuss with general surgery later today Neurological: Alert and Oriented x 3 Result Diagrams: 03/21/18 07:45 03/20/18 10:10 Microbiology and Other Data: Microbiology 03/17/18 10:42 Aerobic Blood Culture - Preliminary Blood Venous No Growth Day 1 Anaerobic Blood Culture - Preliminary No Growth Day 1 03/18/18 09:10 Gram Stain - Final Axilla Right 03/17/18 11:10 Aerobic Blood Culture - Preliminary Blood Venous No Growth Day 1 Anaerobic Blood Culture - Preliminary No Growth Day 1 Assess/Plan/Problems-Billing Miss Bailon is a 17 yo F with h/o hidradenitis supprativa who had an I&D in [place] on 03/14/18 who subsequently presented with fever and was also found to be pancytopenic. - Patient Problems (1) Hidradenitis suppurativa of right axilla Current Visit: Yes Status: Acute Code(s): L73.2 - HIDRADENITIS SUPPURATIVA SNOMED Code(s): 900504111 Comment: The patient has been diagnosed with hidradenitis suppurativa and had I&D done on 03/14/18. Now with drain in place and it is being followed by general surgery. ? drain can be removed today now that plt count is improved. Continue flagyl for now. She had been treated with bactrim prior to this admission. Final micro report from the aerobic culture grew mixed skin louie, the anaerobic culture grew B Fragilis. (2) Sepsis Current Visit: Yes Status: Acute Comment: On admission the patient was felt to be septic based on fever, leukopenia and thrombocytopenia. Sepsis is now resolved. (3) Pancytopenia Current Visit: Yes Status: Acute Code(s): D61.818 - OTHER PANCYTOPENIA SNOMED Code(s): 942039019 Comment: Pt initially was not anemic however the day after admission was pancytopenic (initially just leukopenic and thrombocytopenic). Pt has been seen by hematology and had bone marrow biopsy done yesterday. ? suppression from bactrim in addition to possible ITP as pt's plt count has responded to IVIG. Will need close hematology follow up. (4) Elevated LFTs Current Visit: Yes Status: Acute Code(s): R94.5 - ABNORMAL RESULTS OF LIVER FUNCTION STUDIES SNOMED Code(s): 503586769 Comment: Yesterday the patient's LFTs elevated. Repeat today pending. Doubt this is from the bactrim as she has been off it for several days. (5) DVT prophylaxis Current Visit: Yes Status: Acute Code(s): WFJ6944 - SNOMED Code(s): 229675242 Comment: ambulation (6) Full code status Current Visit: Yes Status: Acute Code(s): Z78.9 - OTHER SPECIFIED HEALTH STATUS SNOMED Code(s): 060874388 Status and Disposition: .
[2018-03-21] MEDS: Docusate CAP* 100 MG PO SCH ×2 (09:55→20:32)
[2018-03-21] MEDS: Magnesium Hydroxide LIQ* 30 ML UDC PO PRN (09:55)
--- NOTE | 2018-03-21 10:14 | PN ---
Progress Note - Progress Note Date of Service: 03/21/18 Note: Surgery progress: S: Not much pain. Small amounts of light sang drainage. O: Vital Signs - 8 hr 03/21/18 03/21/18 03/21/18 03:26 07:22 08:00 Temperature 98.7 F 98.3 F Pulse Rate 76 54 Respiratory 16 15 18 Rate Blood Pressure 116/53 105/67 (mmHg) O2 Sat by Pulse 100 99 Oximetry 03/21/18 08:02 Temperature 98.5 F Pulse Rate 73 Respiratory 14 Rate Blood Pressure 104/58 (mmHg) O2 Sat by Pulse 100 Oximetry Laboratory Tests 03/21/18 07:45 Hgb 10.6 L Plt Count 42 L D R axilla: drainage on dsg from this a.m. as above; min tenderness to palp. Drain removed w/o incident. DSD placed. A: Right axillary abscess (2/2 hidradenitis) w/ consequent pancytopenia, improving P: likely d/c home today (on po Flagyl?); will arrange office f/u 1 wk; instructions reviewed
--- NOTE | 2018-03-21 10:38 | PN ---
Progress Note - Progress Note Date of Service: 03/21/18 SOAP: Subjective: [Reports that she is feeling ok. Some discomfort at the bone marrow site. No bleeding. No fevers.] Objective: [ Laboratory Results - last 24 hr 03/18/18 03/19/18 03/20/18 06:32 08:37 10:10 WBC RBC Hgb Hct MCV MCH MCHC RDW Plt Count MPV Neut % (Auto) Lymph % (Auto) Emery % (Auto) Eos % (Auto) Baso % (Auto) Absolute Neuts (auto) Absolute Lymphs (auto) Absolute Monos (auto) Absolute Eos (auto) Absolute Basos (auto) Absolute Nucleated RBC Nucleated RBC % Hem Pathologist Commnt Sodium 132 L Potassium 3.8 Chloride 103 Carbon Dioxide 23 Anion Gap 6 BUN 7 Creatinine 0.46 L Est GFR ( Amer) 211.7 Est GFR (Non-Af Amer) 175.0 BUN/Creatinine Ratio 15.2 Glucose 81 Calcium 8.3 L Total Bilirubin 0.30 AST 256 H ALT 175 H Alkaline Phosphatase 52 C-Reactive Protein 18.50 H Total Protein 8.8 Total Protein (PEP) 5.3 L Albumin 2.9 L Albumin (PEP) 2.6 L Globulin 5.9 H Albumin/Globulin Ratio 0.5 L Albumin/Globulin (PEP) 0.96 Krcev-4-Kmygilyyp 0.3 Npcey-9-Srwqbateu 0.8 Wkiv-7-Bbmunnul 0.6 L Gamma Globulins 1.0 PEP Impression See comment 03/21/18 07:45 WBC 4.5 RBC 3.93 L Hgb 10.6 L Hct 31 L MCV 80 MCH 27 MCHC 34 RDW 14 Plt Count 42 L D MPV 9.9 Neut % (Auto) 51.1 Lymph % (Auto) 39.4 Emery % (Auto) 7.2 Eos % (Auto) 1.3 Baso % (Auto) 1.0 Absolute Neuts (auto) 2.3 Absolute Lymphs (auto) 1.8 Absolute Monos (auto) 0.3 Absolute Eos (auto) 0.1 Absolute Basos (auto) 0 Absolute Nucleated RBC 0 Nucleated RBC % 0.1 Hem Pathologist Commnt Sodium Potassium Chloride Carbon Dioxide Anion Gap BUN Creatinine Est GFR ( Amer) Est GFR (Non-Af Amer) BUN/Creatinine Ratio Glucose Calcium Total Bilirubin AST ALT Alkaline Phosphatase C-Reactive Protein Total Protein Total Protein (PEP) Albumin Albumin (PEP) Globulin Albumin/Globulin Ratio Albumin/Globulin (PEP) Kyspf-3-Tpliavuaw Prnmd-8-Eylrufgab Jdry-5-Wdwwzdhq Gamma Globulins PEP Impression Acetaminophen (Tylenol Tab*) 650 mg PO Q4H PRN PRN Reason: FEVER/PAIN Last Admin: 03/19/18 23:18 Dose: 650 mg Docusate Sodium (Colace Cap*) 100 mg PO BID [facility] Last Admin: 03/21/18 09:55 Dose: 100 mg Metronidazole/Sodium Chloride (Flagyl 500 Mg Ivpb*) 500 mg in 100 mls @ 100 mls /hr IVPB Q8H [facility] Last Admin: 03/21/18 09:55 Dose: 100 mls/hr Magnesium Hydroxide (Milk Of Magnsarah Liq*) 30 ml PO BID PRN PRN Reason: CONSTIPATION Last Admin: 03/21/18 09:55 Dose: 30 ml Ondansetron HCl (Zofran Odt Tab*) 4 mg SL Q6H PRN PRN Reason: NAUSEA/VOMITING Ondansetron HCl (Zofran Inj*) 4 mg IV Q4H PRN PRN Reason: VOMITING Last Admin: 03/19/18 19:45 Dose: 4 mg Pharmacy Profile Note (Scopolamine Patch Remove*) 1 note PATCH OFF Q72H [facility] Polyethylene Glycol/Electrolytes (Miralax*) 17 gm PO DAILY PRN PRN Reason: CONSTIPATION Prochlorperazine Edisylate (Compazine Inj*) 5 mg IV Q6H PRN PRN Reason: NAUSEA/VOMITING Last Admin: 03/19/18 21:30 Dose: 5 mg Psyllium Hydrophilic Mucilloid (Metamucil Tony*) 1 pkt PO DAILY PRN PRN Reason: DIARRHEA Scopolamine (Transderm-Scop 1.5 Mg Patch *) 1 patch TRANSDERM Q72H [facility] Last Admin: 03/19/18 18:57 Dose: Not Given Senna (Senokot Tab*) 1 tab PO BEDTIME PRN PRN Reason: CONSTIPATION Last Admin: 03/20/18 21:20 Dose: 1 tab Vital Signs: Temp Pulse Resp BP Pulse Ox 98.5 F 73 14 104/58 100 03/21/18 08:02 03/21/18 08:02 03/21/18 08:02 03/21/18 08:02 02/14/19 08:02 Exam: Gen: Well appearing 17 yo female in NAD Skin: R axilla dressed, petechiae resolved] Assessment: [17 yo female admitted with sepsis secondary to a R axillary abscess who developed severe neutropenia and thrombocytopenia who appears to be spontaneously resolving. ] Plan: [1. Thrombocytopenia/neutropenia - neutropenia has resolved and thrombocytopenia is improving - bone marrow results appear benign - most likely explanation for cytopenias is marrow suppression from Bactrim - recommend avoiding further use - no intervention necessary, anticipate counts will continue to recover - will plan to follow up in the hematology clinic with Dr Nicholas in 2-3 weeks, will arrange an appointment 2. R axillary abscess ]
[2018-03-21 15:29] LABS: C Reactive Protein 13.44 mg/L (<8.01)
[2018-03-22] MEDS: metroNIDAZOLE IV 500 MG/100ML* 500 MG/100 ML BAG IVPB SCH ×2 (02:01→08:04)
[2018-03-22 02:42] LABS: Erythrocyte Sed Rate 68 mm/Hr (0-20)
[2018-03-22 07:59] VITALS: BP 117/70
[2018-03-22] MEDS: Docusate CAP* 100 MG PO SCH (08:04)
[2018-03-22 11:30] LABS: Hematocrit 35 % (35-47); Hemoglobin 11.8 g/dl (12.0-16.0); Mean Corpuscular HGB Conc 34 g/dl (31-36); Mean Corpuscular Hemoglobin 27 pg (27-31); Mean Corpuscular Volume 80 fL (80-97); Mean Platelet Volume 9.7 fL (7.4-10.4); Platelet Count 96 10^3/ul (150-450); Red Blood Count 4.39 10^6/ul (4.00-5.40); Red Cell Distribution Width 14 % (10.5-15)
[2018-03-22 11:36] LABS: Albumin 3.5 g/dL (3.2-5.2); Albumin/Globulin Ratio 0.6 (1-3); BUN/Creatinine Ratio 16.3 (8-20); Calcium 9.2 mg/dL (8.6-10.3); EGFR African American 196.9 (>60); EGFR Non-African American 162.7 (>60); Globulin 5.8 g/dL (2-4); Total Bilirubin 0.3 mg/dL (0.2-1.0); Total Protein 9.3 g/dL (6.4-8.9)
--- NOTE | 2018-03-22 14:36 | DS ---
CC: [facility]; Dr. Dean; KEELEY Peña; Gavin Valdez; Dr. Lashaun Hair; Dr. Ashok Nicholas * MEDICINE DISCHARGE SUMMARY: DATE OF ADMISSION: 03/17/18 DATE OF DISCHARGE: 03/22/18 PROVIDER: Moris Cortes NP ATTENDING PHYSICIAN: Dr. Madyson Maldonado * (dictated by Moris Cortes NP). CONSULTING PROVIDERS: Dr. Ashok Nicholas of Hematology/Oncology, Dr. Juaquin Dean of General Surgery PRIMARY CARE PROVIDER: [facility]. PRIMARY DISCHARGE DIAGNOSES: 1. Right axillary hidradenitis suppurativa, status post incision and drainage. 2. Abnormal LFTs. 3. Pancytopenia, thought to be secondary to immune-mediated reaction to Bactrim. 4. Sepsis, on admission as evidenced by fever, leukopenia and thrombocytopenia , now resolved. SECONDARY DISCHARGE DIAGNOSES: As per above. Hidradenitis suppurativa. MEDICATIONS AT DISCHARGE: Augmentin 500 mg p.o. b.i.d. x7 additional days. Please note that previous antibiotics of Bactrim and doxycycline and cefadroxil have been discontinued. DIAGNOSTIC TESTING DURING THIS ADMISSION: Liver ultrasound from 03/21/18 shows small amount of biliary sludge versus stones without definite sonographic evidence of biliary obstruction or acute inflammatory change. CT of the brain on 03/19/18 shows no acute intracranial pathology. Of note, this was performed secondary to patient's complaint of headache. CT of the chest on 03/17/18 showed a relatively large bilobed air-fluid collection present in the right axilla with a drain in the inferior portion of the collection consistent with an abscess. The abscess appears significantly larger than on the prior ultrasound study. Chest x-ray from 03/17/18 shows no evidence for acute disease. HOSPITAL COURSE OF STAY: For full details, please refer to the H and P provided by Dr. Bernadine Benitez on 03/17/18. In summary, this is a 17-year-old female with a history of hidradenitis suppurativa, who is receiving steroid injections by Dr. Hair and had a recent exacerbation that resulted in incision and drainage of the abscess by Dr. Arzate of [place] with subsequent placement of a drain. She presented to the ER here at [facility] with concern for fever. It was noted that her cultures grew bacteroides fragilis that was sensitive to metronidazole and clindamycin. She was noted on admission to have some thrombocytopenia that was initially thought to be secondary to sepsis; however, this persisted and she was seen in consultation by Hematology/Oncology as she developed marked pancytopenia in the setting of an infection with recent treatment with Bactrim. A bone marrow biopsy was performed. She was transfused platelets. There was poor response to the platelet transfusion, and she then received IVIG with notable increase in her thrombocytopenia. Her pancytopenia continued to improve over the course of her stay and she has had no further fevers. Neutropenia was resolved prior to discharge. It was thought that the most likely explanation for her cytopenias would be marrow suppression from the Bactrim, and she was recommended to avoid further use. Her bone marrow results initially appeared to be benign and had fully resulted prior to discharge, it showed normal cellularity of bone marrow with granulocytic hyperplasia and no morphologic or immunophenotypic evidence of a hematologic malignancy. Also during the course of this patient's stay, she was noted to have elevated LFTs starting on 03/20/18. This was reviewed as side consult with Infectious Disease as well, and it was thought that this may be secondary to the Bactrim and perhaps also the metronidazole, as these classes of medications can cause some hepatic abnormalities. She was recommended by ID to discontinue the Flagyl and finish off her course of antibiotics with Augmentin. Prior to discharge, her LFTs have shown improvement from 03/21/18 and she was recommended to follow up next week for followup CBC and CMP to ensure that both her pancytopenia and liver function remained stable. She is without complaint. Denying any acute pain, nausea, vomiting. She does have bruising from phlebotomy, but no signs of uncontrolled bleeding. She has not needed pain medication here. It was discussed that she could use a small amount of acetaminophen sparingly if needed but should not take large amounts of Tylenol. She is eager for discharge to home. She is aware of followup needs, which includes surgical followup next week and hematological followup in [address] Nicholas. She has been advised to obtain labs at [facility] and follow up with the [facility] physicians next week. Again, Mariah has no acute complaints today other than some mild discomfort at the site of her drain removal in the right axilla. PHYSICAL EXAMINATION: General: This is a young female, seen lying in bed. Mother is at bedside with the patient. She is in no acute distress. Most recent vitals: Temperature 98.1, pulse rate 70, respiratory rate 16, blood pressure 117/70, and O2 saturation is 100% on room air. HEENT: Head is atraumatic, normocephalic. Pupils are equal and round. Extraocular movements are intact. There is no scleral icterus. Oral mucosa is moist. Neck is supple with full range of motion. Cardiac: Normal S1 and S2 heart sounds with regular rate and rhythm. No murmurs appreciated. No peripheral edema noted. Lungs are clear to auscultation bilaterally. Abdomen is soft, nontender, nondistended with normoactive bowel sounds. No hepatomegaly or splenomegaly noted. There is no guarding or tenderness. Extremities: No clubbing or cyanosis. Musculoskeletal : She actively moves all extremities. Skin: There is a clean, dry and intact dressing with some old serous drainage noted to the right axilla. Neuro: She is alert and oriented x3. OUTPATIENT FOLLOWUP NEEDS: Again, she is advised to get followup labs next week within the next 5 days and to follow up with [facility]. She should keep her existing appointments that have already been made with Dr. Nicholas and with Jay Jay Miguel of Surgery for followup. She has had her drain removed and again will have followup next week with Surgery. DIET: May resume previous diet. ACTIVITY: As tolerated. She has been advised to avoid strenuous activity in the right arm. CONDITION: Stable. DISPOSITION: To home. TIME SPENT: Approximately 45 minutes was spent on this discharge. Again, this is only a brief summary of the patient's hospital course of stay. For full details, please refer to the full medical record. If there are further questions, please feel free to contact me at [phone]. MORIS CORTES NP [id number]/CPS #: [id number] TYLER
[2018-03-22] MEDS ORDERED: Scopolamine PATCH Remove* 1 NOTE MISC PATCH OFF SCH (18:15)
== END 2018-03-22 14:30 | disposition home or self-care (01) | DRG 871 ==
LOC: ED 10:43 → SSU 16:13 → OBSVTOIN 03-18 10:01
PROVIDERS: ADMIT Internal Medicine; ATTEND Hospitalist
PROC: 30233R1 Transfusion of Nonautologous Platelets into Peripheral Vein, Percutaneous Approach (ICD-10-PCS; principal; 2018-03-18)
PROC: 30233S1 Transfusion of Nonautologous Globulin into Peripheral Vein, Percutaneous Approach (ICD-10-PCS; 2018-03-18)
PROC: 07DR3ZX Extraction of Iliac Bone Marrow, Percutaneous Approach, Diagnostic (ICD-10-PCS; 2018-03-20)
DX: A41.9 Sepsis, unspecified organism (principal); D61.811 Other drug-induced pancytopenia; L02.411 Cutaneous abscess of right axilla; R51 Headache; L73.2 Hidradenitis suppurativa; B96.6 Bacteroides fragilis [B. fragilis] as the cause of diseases classified elsewhere; R59.0 Localized enlarged lymph nodes; R11.10 Vomiting, unspecified; R21 Rash and other nonspecific skin eruption; R79.89 Other specified abnormal findings of blood chemistry; K59.09 Other constipation; R23.3 Spontaneous ecchymoses; T37.0X5A Adverse effect of sulfonamides, initial encounter; Y92.9 Unspecified place or not applicable; K80.50 Calculus of bile duct without cholangitis or cholecystitis without obstruction; D75.89 Other specified diseases of blood and blood-forming organs; Z82.49 Family history of ischemic heart disease and other diseases of the circulatory system; Z83.3 Family history of diabetes mellitus
CPT/HCPCS: 36415; 38221; 70450; 71045; 71260; 76705; 80048; 80053; 80076; 81003; 81479; 82550; 82607; 83605; 83615; 84155; 84165; 84450; 84460; 84550; 85025; 85027; 85049; 85060; 85097; 85384; 85610; 85652; 85730; 86140; 86850; 86900; 86901; 87040; 87070; 87205; 88184; 88187; 88188; 88189; 88305; 88311; 88312; 90283; 99223; 99232; 99284; A9270-GY; G0378; J0692; J0780; J1459; J2270; J2405; J3370; J3490; P9035; Q9967

== ENCOUNTER 2018-12-02 09:08 | Inpatient (IN) | payer OTHER ==
--- NOTE | 2018-12-02 09:54 | ED ---
Skin Complaint - HPI Summary HPI Summary: This pt is a 18 y/o female, with hx of hidradenitis (since 4 years ago), presenting to [facility] c/o consistent pain, swelling and redness under left axilla since 3 days ago. She states she has been having swelling under her left axilla intermittently for the past couple of weeks but became constant 3 days ago. Pt reports her pain is aggravated with moving her left arm and rates her pain 10/ 10 in severity. She notes her pain radiates down her left arm. Pt additionally c /o chills and nausea. Denies fever. She has tried taking Advil with mild relief. Pt has also been getting steroid injections from Dr. Hair, [employer], into both axillae. Pt had a previous episode of hidradenitis flare under right axilla in March 2018 and had surgery for it. Pt notes this surgical scar under her right axilla opened up about 3 weeks ago and has seen Dr. Hanna (surgeon) for this. She was told to keep an eye on open wound under her right axilla. Denies erythema of eyes, sore throat, chest pain, SOB, cough, abd pain, vomiting, dysuria, hematuria, myalgia, edema, rash, or dizziness. Pt is currently on prednisone, metformin, minocycline. She has been taking prednisone every day for the past 2 weeks. Her PCP is [facility]. Pt is allergic to Bactrim. - History of Current Complaint Chief Complaint: EDExtremityUpper Time Seen by Provider: 12/02/18 09:24 Stated Complaint: HYDRADENITIS PER PT Hx Obtained From: Patient Onset/Duration: Started Days Ago, Worse Since - 3 days ago Skin Exposure Onset/Duration: Days Ago Timing: Lasting Days Current Severity: Moderate Pain Intensity: 10 Pain Scale Used: 0-10 Numeric Skin Location: Other: - left axilla Character: Pain, Redness, Raised Aggravating Symptom(s): Other: - movement Alleviating Symptom(s): Nothing Associated Signs & Symptoms: Nausea, Chills Related History: Other: - hx of hidradenitis - Additional Pertinent History Primary Care Physician: [id number] - Allergy/Home Medications Allergies/Adverse Reactions: Allergies Allergy/AdvReac Type Severity Reaction Status Date / Time vancomycin Allergy Intermediate Itching Verified 12/02/18 13:45 sulfamethoxazole Allergy Bleeding Verified 12/02/18 09:20 [From Bactrim] trimethoprim [From Bactrim] Allergy Bleeding Verified 12/02/18 09:20 Home Medications: Home Medications Metformin ER (NF) 500 mg PO BID 12/02/18 [History Confirmed 12/02/18] Minocycline (NF) 100 mg PO DAILY 12/02/18 [History Confirmed 12/02/18] predniSONE TAB* [Deltasone TAB*] 2.5 mg PO BEDTIME 12/02/18 [History Confirmed 12/02/18] PMH/Surg Hx/FS Hx/Imm Hx Sensory History: Denies: Hx Contacts or Glasses, Hx Legally Blind, Hx Deafness, Hx Hearing Aid Opthamlomology History: Denies: Hx Contacts or Glasses, Hx Legally Blind - Surgical History Surgery Procedure, Year, and Place: Drain placement in right armpit 2019. [place] teeth removal Hx Anesthesia Reactions: No Infectious Disease History: No Infectious Disease History: Denies: Traveled Outside the [place] in Last 30 Days - Family History Known Family History: Positive: Cardiac Disease, Diabetes Negative: Hypertension - Social History Alcohol Use: Occasionally Hx Substance Use: No Substance Use Type: Reports: None Hx Tobacco Use: No Smoking Status (MU): Never Smoked Tobacco Review of Systems Positive: Chills. Negative: Fever Negative: Erythema Negative: Sore Throat Negative: Chest Pain Negative: Shortness Of Breath, Cough Positive: Nausea. Negative: Abdominal Pain, Vomiting Negative: dysuria, hematuria Musculoskeletal: Other - POSITIVE: left axilla pain Negative: Myalgia, Edema Skin: Other - POSITIVE: left axilla redness and swelling Negative: Rash Neurological: Other - NEGATIVE: dizziness All Other Systems Reviewed And Are Negative: Yes Physical Exam - Summary Physical Exam Summary: Constitutional: Well-developed, Well-nourished, Alert. (-) Distressed Skin: Warm, Dry. Silver dollar size fluctuance going deep into left axilla. HENT: Normocephalic; Atraumatic Eyes: Conjunctiva normal Neck: Musculoskeletal ROM normal neck. (-) JVD, (-) Stridor, (-) Tracheal deviation Cardio: Rhythm regular, rate normal, Heart sounds normal; Intact distal pulses; The pedal pulses are 2+ and symmetric. Radial pulses are 2+ and symmetric. (-) Murmur Pulmonary/Chest wall: Effort normal. (-) Respiratory distress, (-) Wheezes, (-) Rales Abd: Soft, (-) Tenderness, (-) Distension, (-) Guarding, (-) Rebound Musculoskeletal: (-) Edema Lymph: (-) Cervical adenopathy Neuro: Alert, Oriented x3 Psych: Mood and affect Normal Triage Information Reviewed: Yes Vital Signs On Initial Exam: Initial Vitals Temp Pulse Resp BP Pulse Ox 99.3 F 107 18 127/78 98 12/02/18 09:14 12/02/18 09:14 12/02/18 09:14 12/02/18 09:14 12/02/18 09:14 Vital Signs Reviewed: Yes Procedures - Sedation Patient Received Moderate/Deep Sedation with Procedure: No Diagnostics - Vital Signs Vital Signs Temp Pulse Resp BP Pulse Ox 12/02/18 09:14 99.3 F 107 18 127/78 98 - Laboratory Result Diagrams: 12/02/18 10:01 12/02/18 10:01 Lab Statement: Any lab studies that have been ordered have been reviewed, and results considered in the medical decision making process. - Ultrasound No standard instances Ultrasound Interpretation Completed By: Radiologist Summary of Ultrasound Findings: Soft tissue left axilla US IMPRESSION: Complex fluid collection in the left axilla consistent with abscess. Dr. Melendez has reviewed this report. Re-Evaluation - Re-Evaluation First Eval Re-Evaluation Time: 10:50 Comment: 100.7 F temporal temperature. Second Eval Re-Evaluation Time: 12:16 Comment: I checked the patient's temperature twice temporally and they were 100.7 F and 101.2F. Pt also reports surgeons don't take her insurance and has difficulty with outpatient appointments due to cost. Course/Dx - Course Assessment/Plan: Pt is a 18 y/o female, with hx of hidradenitis (since 4 years ago), presenting [facility] c/o consistent pain, swelling and redness under left axilla since 3 days ago. She states she has been having swelling under her left axilla intermittently for the past couple of weeks but became constant 3 days ago. Pt reports her pain is aggravated with moving her left arm and rates her pain 10/10 in severity. She notes her pain radiates down her left arm. Pt additionally c/o chills and nausea. Denies fever. She has tried taking Advil with mild relief. Pt has also been getting steroid injections from Dr. Hair, [employer], into both axillae. Lab results are unremarkable. Urinalysis shows trace ketones, 3+ blood, 3+ RBC, present squamous epithelial cells. In the ED course the pt was given acetaminophen, doxycycline, morphine, Zofran, vancomycin, Benadryl, fentanyl. Discussed the case with Dr. Guidry, surgeon, who evaluated the pt in the ED. Dr. Guidry will admit the patient. Soft tissue left axilla US IMPRESSION: Complex fluid collection in the left axilla consistent with abscess. - Diagnoses Provider Diagnoses: Subcutaneous abscess Discharge ED - Sign-Out/Discharge Documenting (check all that apply): Patient Departure - Admit to [facility] - Discharge Plan Condition: Stable Disposition: ADMITTED TO [facility] Referrals: No Primary Care Phys,NOPCP [Primary Care Provider] - - Attestation Statements Document Initiated by Scribe: Yes Documenting Scribe: Linh Alcaraz Provider For Whom Scribe is Documenting (Include Credential): Jamal Melendez MD Scribe Attestation: ILinh, scribed for Jamal Melendez MD on 12/02/18 at 1400. Status of Scribe Document: Ready
[2018-12-02] MEDS ORDERED: Morphine 4 MG/ML VIAL (1 ml) 4 MG/ML VIAL IV ONE (09:58)
[2018-12-02] MEDS ORDERED: Ondansetron INJ* 2 MG/ML VIAL IV ONE (09:58)
[2018-12-02] MEDS ORDERED: NS 0.9% 1000 ML** 1,000 ML IV.FLUID IV ONE (09:59)
[2018-12-02 10:11] LABS: ABS Eosinophils 0.4 10^3/ul (0-0.6); ABS Lymphocytes 1.2 10^3/ul (1.0-4.8); ABS Monocytes 0.9 10^3/ul (0-0.8); ABS Neutrophils 6.6 10^3/ul (1.5-7.7); Eosinophil % 4.7 %; Hematocrit 39 % (35-47); Hemoglobin 13.2 g/dL (12.0-16.0); Lymphocyte % 13.1 %; Mean Corpuscular HGB Conc 34 g/dL (31-36); Mean Corpuscular Hemoglobin 27 pg (27-31); Mean Corpuscular Volume 80 fL (80-97); Mean Platelet Volume 8.4 fL (7.4-10.4); Platelet Count 195 10^3/uL (150-450); Red Blood Count 4.87 10^6 /uL (3.70-4.87); Red Cell Distribution Width 14 % (10-15); White Blood Count 9.2 10^3/uL (3.5-10.8)
[2018-12-02 10:20] LABS: Activated Partial Thrombo Time 31.6 seconds (26.0-38.0); INR 1.09 (0.82-1.09)
[2018-12-02 10:29] LABS: Albumin 4.3 g/dL (3.2-5.2); Albumin/Globulin Ratio 1.5 (1-3); BUN/Creatinine Ratio 14.8 (8-20); Calcium 9.2 mg/dL (8.6-10.3); EGFR African American 174.2 (>60); EGFR Non-African American 143.9 (>60); Globulin 2.9 g/dL (2-4); Potassium 3.7 mmol/L (3.5-5.0); Total Bilirubin 0.6 mg/dL (0.2-1.0); Total Protein 7.2 g/dL (6.4-8.9)
--- OUTSIDE RECORDS SUMMARY | 2018-12-02 10:30 | XMS REPORT | Continuity of Care Document ---
:2000 External Reference #:[id number] Author Name Sheela Hanna MD (transmitted by agent of provider Luna Carig) Address [address], [place] [address] Problems Description No Information Available Social History Type Date Description Comments Sex Unknown Smokeless Tobacco Never Used Smokeless Tobacco ETOH Use Denies alcohol use Tobacco Use Start: Unknown Patient has never smoked Recreational Drug Use Denies Drug Use Smoking Status Reviewed: 11/12/18 Patient has never smoked Exercise Type/Frequency Exercises regularly Allergies, Adverse Reactions, Alerts Active Allergies Reaction Severity Comments Date Bactrim thrombocytopenia 03/26/2018 Inactive Allergies NKDA 03/22/2018 Medications Active Medications SIG Qnty Indications Ordering Provider Date Tylenol 2 tabs by mouth Unknown 325mg Tablets every 4 hours as needed Clindamycin HCL take 1 capsule by Unknown 300mg mouth twice a day Capsules Metformin HCL 1 tab twice a day Unknown 500mg Tablets Immunizations Description No Information Available Vital Signs Date Vital Result Comment 11/12/2018 9:08am Heart Rate 72 /min Respiratory Rate 16 /min Body Temperature 97.8 F 08/19/2018 8:54am Heart Rate 78 /min Respiratory Rate 12 /min Body Temperature 97.0 F Results Description No Information Available Procedures Description No Information Available Medical Devices Description No Information Available Encounters Type Date Location Provider Dx Diagnosis Office Visit 08/19/2018 Surgical Sheela Hanna MD L73.2 Hidradenitis 9:00a [facility] Office Visit 08/12/2018 Surgical Sheela Hanna MD L73.2 Hidradenitis 2:30p [facility] Assessments Date Code Description Provider 08/19/2018 L73.2 Hidradenitis suppurativa Sheela Hanna MD 08/12/2018 L73.2 Hidradenitis suppurativa Sheela Hanna MD Plan of Treatment 08/19/2018 - Sheela Hanna MDL73.2 Hidradenitis suppurativaFollow up:Please see Dr. Hair for your scheduled appointment on 09/05. Please feel free to return and seeme as needed. You should return to the office or ED for fevers, chills, worsening pain in the axilla, drainage, increased erythema. Functional Status Description No Information Available Mental Status Description No Information Available Referrals Description No Information Available
[2018-12-02] MEDS ORDERED: Vancomycin(*) 1,000 MG VIAL IVPB SCH (11:00)
[2018-12-02] MEDS ORDERED: fentaNYL* 50 MCG/ML 2 ML VIAL (100 MCG VIAL) IV SLOW PU ONE (11:15)
[2018-12-02] MEDS ORDERED: Vancomycin 1500 MG IV - x ONCE IVPB ONE ×2 (12:45)
[2018-12-02 12:57] LABS: Urine Appearance Clear; Urine Bacteria Absent (Absent); Urine Bilirubin Negative (Negative); Urine Blood 3+ (Negative); Urine Color Straw; Urine Glucose Negative (Negative); Urine Ketones Trace (Negative); Urine Nitrite Negative (Negative); Urine Protein Negative (Negative); Urine Red Blood Cell 3+(>10/hpf) (Absent); Urine Specific Gravity 1.004 (1.010-1.030); Urine Squamous Epithelial Cell Present (Absent); Urine Urobilinogen Negative (Negative); Urine White Blood Cell Trace(0-5/hpf) (Absent)
[2018-12-02] MEDS ORDERED: diPHENhydraMINE IV* 50 MG/ML 1 ml VIAL (BENADRYL) IV ONE (13:43)
[2018-12-02] MEDS ORDERED: Acetaminophen TAB* 325 MG PO ONE (13:43)
[2018-12-02] MEDS ORDERED: DOXYcycline IV* 100 MG VIAL IVPB ONE (13:50)
[2018-12-02] MEDS ORDERED: Ondansetron INJ* 2 MG/ML VIAL IV PRN (13:51)
[2018-12-02] MEDS ORDERED: Lactated Ringers 1000 ML Bag* 1,000 ML IV SCH (14:00)
[2018-12-02] MEDS ORDERED: Piperacillin/Tazobactam VIAL*) 3.375 GM in NS 0.9% 100 ML* 100 ML IVPB SCH (14:00)
[2018-12-02] MEDS ORDERED: DOXYcycline IV* 100 MG in NS 0.9% 250 ML* 250 ML IVPB ONE (14:15)
--- NOTE | 2018-12-02 14:40 | HP ---
CC: [facility]; Dr. Hair. * HISTORY AND PHYSICAL: DATE OF ADMISSION: 12/02/18 HISTORY OF PRESENT ILLNESS: I was contacted by the emergency room staff regarding Ms. Bailon a 18-year-old female with a history of hidradenitis suppurativa of the bilateral axilla, who presents with worsening right axillary discomfort. Workup in the emergency room including evaluation and ultrasound as well as labs was suggestive of a complex fluid collection in the soft tissues of the left axilla measuring 5 x 2 x 4.5 cm consistent with abscess. The patient was noted to have fever, tachycardia. She required fentanyl just for the customer contact sales associate to perform the study. The patient has a longstanding history of hidradenitis, requiring an incision and drainage of the right axilla earlier this year, this was done under general anesthesia at [facility]. The patient did soon follow up at our hospital afterwards for an evaluation and was admitted for observation, where she underwent additional workup with Hematology. This admission was briefly reviewed. The patient denied any plastic surgery or general surgery excision of the right axillary lesion and she states that this has been improved somewhat. The patient started having pain for the last 3 or 4 days, worsening at the left axilla; however, she has been treated with steroid injections at that left axilla preceding this significant pain through her Dermatology office. The patient denies any drainage from this site. She cannot lift her arm, cannot make it to classes, difficult time sleeping. PAST MEDICAL HISTORY: Hidradenitis. PAST SURGICAL HISTORY: As described above included only the incision and drainage. HOME MEDICATIONS: Include small dose prednisone orally as well as minocycline and now metformin, all started recently. She also received a dose of vancomycin here in the hospital. ALLERGIES: Allergic to BACTRIM. FAMILY HISTORY: Noncontributory. SOCIAL HISTORY: The patient is a nonsmoker. 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 She is from [place]. REVIEW OF SYSTEMS: No significant weight loss or weight gain. Fevers here in the hospital. She denies any GERD like symptoms. No abdominal pain. No complications with anesthesia in the past. No endocrine disorders; however, the patient is on metformin and unclear if the patient might have polycystic ovary. PHYSICAL EXAMINATION GENERAL: Alert and oriented x3, in mild distress. VITAL SIGNS: Temperature 101.5, blood pressure 129/80, pulse 101. HEENT: Normocephalic, atraumatic. Sclerae anicteric. Mucous membranes are moist. AXILLA: Focused examination of the axilla reveals significant tenderness in the left axilla. I was unable to palpate completely around this. There was no drainage; however, there was still ultrasound jelly in the area. Mild fluctuance was appreciated, but the patient had significant pain and it was difficult to continue the examination at this point. No evidence of abscess in the right axilla. ABDOMEN: Soft, nondistended and nontender. EXTREMITIES: Within normal limits with no edema or mottling. IMPRESSION AND PLAN: A 18-year-old female with history of hidradenitis, now with abscess in left axilla likely secondary to this disease. The patient has been on topical treatment and will require an incision and drainage. I outlined the details of the procedure of an incisional drainage of left axillary abscess and the patient wishes to proceed. We spoke about the possible complications, which include but not limited to bleeding, infection, need for packing and ongoing treatment. The patient's questions were answered. She understands it might be me or my partner performing the procedure depending on timing. I discussed with her the alternatives of doing this in the emergency room. The patient states she is in too much pain and wished to have anesthesia involvement. I do not think this will require general anesthesia and perhaps she did not even get general anesthesia while at [place] , but certainly she will need some monitored anesthesia to perform this safely and comfortably. The patient has already been given a dose of vancomycin. I inquired with the emergency room physician if they felt that she required admission and if that is the case under SIRS or sepsis guideline, I prefer the hospitalist to admit her for cellulitis and abscess. They are aware and I believe a call was made out to the hospitalist service, otherwise we can continue with our plan of drainage and we will continue to follow. The patient will remain n.p.o. and on IV fluids and the patient should get additional antibiotics going forward as well as a repeat lactate level. The patient shows signs of SIRS, possibly sepsis. [id number] #: [id number] MTDD
[2018-12-02] MEDS ORDERED: Lidocaine 1% w EPI 1:100,000* MDV 20 ML VIAL ONE (14:46)
[2018-12-02] MEDS ORDERED: Bupivacaine 0.25% SDV PF* 10 ML VIAL INJ ONE (14:47)
[2018-12-02] MEDS ORDERED: fentaNYL* 50 MCG/ML 2 ML VIAL (100 MCG VIAL) ONE ×2 (15:33→15:43)
[2018-12-02] MEDS ORDERED: Midazolam* 1 MG/ML 5 ML VIAL (5 MG) ONE (15:33)
[2018-12-02] MEDS ORDERED: Midazolam* 1 MG/ML 2 ML VIAL (2 MG) ONE (15:48)
--- NOTE | 2018-12-02 15:57 | OP ---
Operative Report - Blank - Operative Report Date of Operation: 12/02/18 Note: Pre-OP Diagnoses: left axillary abscess Post-op Diagnosis: same Procedure: Incision and drainage of l axillary abscess Surgeon: Chao Asst: none Anethesia: local MAC EBL: minimal IVF: crystalloid Specimen: abscess fluid for culture Drains: wound packed and left open
[2018-12-02] MEDS: oxyCODONE/Acetamin 5/325 MG* TAB PO PRN (18:43)
[2018-12-02] MEDS: DOXYcycline CAP(*) 100 MG PO SCH (20:54)
[2018-12-02] MEDS: HYDROmorphone INJ* 0.5 MG/0.5 ML SYRINGE IV SLOW PU PRN (21:20)
--- NOTE | 2018-12-03 00:21 | OP ---
[facility]: [facility] * DATE OF OPERATION: 12/02/18 - ROOM #341 DATE OF : 98 SURGEON: Noam Guidry MD ASSISTANT COMMUNITY DIRECTOR: None. ANESTHESIOLOGIST: Dr. Fung. ANESTHESIA: Local MAC. PRE-OP DIAGNOSIS: Left axillary abscess. POST-OP DIAGNOSIS: Left axillary abscess. OPERATIVE PROCEDURE: Incision and drainage of the left axillary abscess. ESTIMATED BLOOD LOSS: Minimal. FLUIDS: No crystalloid fluid given. SPECIMEN: Cultures for aerobic and anaerobic, wound left open, packed with half - inch iodoform packing. DESCRIPTION OF PROCEDURE: The patient was identified in the preoperative area. She had been marked. She was brought to the operating room, placed on the operating table in supine position. Gentle sedation was given. The patient's left axilla was then prepped sterilely and then draped and a time-out was performed. Abscess was identified. This was superficial and injection of lidocaine with epinephrine along the proposed incision site was made. We then incised and copious pus was drained. This was nonfoul smelling and cultures were taken. We then injected around the cavity with anesthesia and then entered the cavity with Mariah clamp. We identified the full cavity which was approximately 3 x 3 cm. It was irrigated copiously and then packed with iodoform packing followed by dressing. The patient tolerated the procedure well, was transferred to PACU in stable condition. [id number] #: [id number] MTDD
[2018-12-03] MEDS: HYDROmorphone INJ* 0.5 MG/0.5 ML SYRINGE IV SLOW PU PRN ×2 (03:18→09:57)
[2018-12-03 06:36] LABS: ABS Eosinophils 0.3 10^3/ul (0-0.6); ABS Lymphocytes 1.2 10^3/ul (1.0-4.8); ABS Monocytes 0.6 10^3/ul (0-0.8); ABS Neutrophils 6.1 10^3/ul (1.5-7.7); Eosinophil % 3.6 %; Hematocrit 36 % (35-47); Hemoglobin 11.8 g/dL (12.0-16.0); Lymphocyte % 14.1 %; Mean Corpuscular HGB Conc 33 g/dL (31-36); Mean Corpuscular Hemoglobin 27 pg (27-31); Mean Corpuscular Volume 81 fL (80-97); Mean Platelet Volume 8.8 fL (7.4-10.4); Nucleated Red Blood Cells % 0.1; Platelet Count 184 10^3/uL (150-450); Red Blood Count 4.43 10^6 /uL (3.70-4.87); Red Cell Distribution Width 14 % (10-15); White Blood Count 8.2 10^3/uL (3.5-10.8)
[2018-12-03 06:57] LABS: Albumin 3.7 g/dL (3.2-5.2); Albumin/Globulin Ratio 1.6 (1-3); BUN/Creatinine Ratio 14.6 (8-20); Calcium 8.8 mg/dL (8.6-10.3); EGFR African American 199.5 (>60); EGFR Non-African American 164.9 (>60); Globulin 2.3 g/dL (2-4); Potassium 3.7 mmol/L (3.5-5.0); Total Bilirubin 0.6 mg/dL (0.2-1.0)
[2018-12-03] MEDS: oxyCODONE/Acetamin 5/325 MG* TAB PO PRN (08:19)
[2018-12-03] MEDS: DOXYcycline CAP(*) 100 MG PO SCH (08:20)
--- NOTE | 2018-12-03 10:36 | DS ---
Discharge Summary Surgeon:Dr Guidry Admit Date:12/02/18 Discharge Date:12/03/18 D/C diagnosis:Left Axilla Abscess Reason For Admission: Left Axilla Abscess Assessment of Condition at Discharge:Stable Date of D/C PEX: Chest: CTA CVS: RRR Surgical Site:Left Axilla incision site no gross bleeding or pus packing was removed and replaced. 4x4 cover dressing placed patient tolerated packing/dressing change well Labs: cultures pending Procedures Performed:patient was taken to the OR on 12/02 for I&D of Abscess left axilla, tolerated well and was transferred to SCU for post op care. Treatment Rendered: I&D, IV ABX, IV and PO analgesia, Dressing removed, packing changed, new dresing placed on 12/03 Discharge instructions were given to the patient regarding Diet, Medications, Activity, and post operative Follow up. All Questions were answered. Patient was also seen and examined by Dr Guidry Discharged Home in Stable Condition on 12/03/18
[2018-12-03 11:55] VITALS: BP 97/57
== END 2018-12-03 13:30 | disposition home or self-care (01) | DRG 603 ==
LOC: ED 09:08 → OR 14:16 → SSU 17:55
PROVIDERS: ADMIT Surgery; ATTEND Surgery
PROC: 0X950ZZ Drainage of Left Axilla, Open Approach (ICD-10-PCS; principal; 2018-12-02 19:15)
DX: L02.412 Cutaneous abscess of left axilla (principal); R65.10 Systemic inflammatory response syndrome (SIRS) of non-infectious origin without acute organ dysfunction; B95.2 Enterococcus as the cause of diseases classified elsewhere; L73.2 Hidradenitis suppurativa; Z88.1 Allergy status to other antibiotic agents
CPT/HCPCS: 36415; 80053; 81003; 81015; 81025; 83605; 84484; 85025; 85610; 85730; 87040; 87070; 87073; 87077; 87086; 87186; 87205; 87640; 87641; 96361; 96374; 96375; 99284; A9270-GY; J1170; J1200; J2250; J2270; J2405; J3010; J3370; J3490